=== PATIENT | male | born 1975 | race Two or more races ===

== ENCOUNTER 2019-12-05 20:39 | Inpatient (IN) ==
[2019-12-05 20:46] VITALS: BMI 31.4
--- NOTE | 2019-12-05 21:10 | DR.SOBA ---
HPI Time Seen Time Seen by Provider: 12/05/19 21:10 Primary Care Physician Primary Care Physician: BERNADETTE HPI Comment HPI Comment: PATIENT IS 44YR OLD MALE IN ER WITH INCREASING SOB AND FEVER TIMES 6 DAYS. HE DEVELOP COUGH, SOERE THROAT AND MYALFIA WITH FEVER AND CHILLS 6ADS AGO. EVALUATED IN ER 3 DAYS LATER AND COVID 19 TEST WAS DONE. IT IS POSITIVE. C HEST TIGHTNESS AND SOB BREATH THAT IS GETTING WORSE FOLLOWED PREVIOUS SYMPTOMS. EXTREMELY WEAK AND DRAINED OF ENERGY. GIVEN ZITHROMAS AND IS TAKING MEDICATION WITHOUT IMPROVEMENT. HE IS HAVING SEVERE 10-/10 THROBBING HEADACHE AND MUSCLE PAIN. HE TOOK IBUPROFEN FOR PAIN WITH SOME IMPROVEMENT. HAVE NOT PREVIOUSLY HAVESIMILAR PAIN. PAIN IS GENERALIZED. IMPROVE WITH REST AND WORSE WITH EXERTION. NO DYSURIA, OR DIARRHEA. PATIENT SPEAK MALAY, HERE WITH RELATIVE WHO IS INTERPRETING FOR HIM. Complaints Chief Complaint Doctors Comments: FEVER, SOB AND CHEST PAIN. Chief Complaint:: PT AMBULATORY IN ED WITH C/O TROUBLE BREATHING. PT WAS SEEN IN ED 2 DAYS AGO FOR SAME REASON. PT WAS TESTED FOR COVID 19 AT THAT TIME AND WAS CALLED TODAY AND TOLD HE WAS POSITIVE. PT STILL HAVING TROUBLE BREATHING AND UNABLE TO SLEEP X 2-3 DAYS. COVID-19 Coronavirus risk:travel/contact w/high risk person: No Has patient experienced Coronavirus symptoms: Yes Coronavirus symptoms experienced: Fever, Coughing and Shortness of Breath Reviewed Nurses Notes Reviewed: Yes Source History Provided: Family Member Mode of Arrival Mode of Arrival: Ambulatory Timing Onset of Chief Complaint: 11/30/19 Duration Duration: Days Context PE Risk Factors:: None History of:: None Currently on:: Neither Prehospital Care:: None Modifying Factors Worsens:: Exertion Improves:: Rest and Sitting Up Associated Signs and Symptoms Associated Signs and Symptoms: Fever, Cough and Chest Pain If Chest Pain Quality: Pleuritic (TIGHTNESS.) Location: Substernal If Cough Cough: Nonproductive PMH PMH Past Medical History: No Past Surgical History: No Surgical History: No History Family History History of Family Medical Conditions: No Social History Does patient currently use any type of tobacco product: No Have you used tobacco products in the last 12 months: No Type of Tobacco Use: None Does any household member use tobacco: No Alcohol Use: Occasionally Do you use any recreational Drugs:: No Lives With: Spouse Lives Where: Home Travel Risk Coronavirus risk:travel/contact w/high risk person: No Has patient experienced Coronavirus symptoms: Yes Coronavirus symptoms experienced: Fever, Coughing and Shortness of Breath Infectious screening In the last 2 months have you had wt loss of >10#?: NO Have you had fever, night sweats or hemotysis?: No Have you traveled outside the country in the last 6 months?: No Isolation: Droplet ROS Review of Systems Constitutional: See HPI, Chills, Fever, Malaise, Weakness and Fatigue Eyes: No Symptoms Reported and See HPI; negative Blurred Vision and Diplopia ENTM: See HPI, Nose Congestion and Throat Pain; negative Ear Pain and Nose Discharge Respiratoy: See HPI, Non-Productive Cough, Short of Breath and Wheezing; negative Hemoptysis Cardiovascular: See HPI, Chest Pain (TIGHTNESS.) and Palpitations; negative Edema Gastrointestinal/Abdominal: No Symptoms Reported; negative Abdominal Pain, Diarrhea, Nausea and Vomiting Genitourinary: No Symptoms Reported; negative Dysuria, Frequency and Hematuria Neurological: Headache and Weakness; negative Dizziness Musculoskeletal: See HPI and Muscle Pain Integumentary: See HPI and Dryness; negative Change in Color, Rash and Juandice Hematologic/Lymphatic: No Symptoms Reported and See HPI; negative Easy Bruising and Swollen Glands Endocrine: See HPI and Increased Thirst; negative Increased Urine Psychiatric: No Symptoms Reported and See HPI All Other Systems: Reviewed and Negative PE Vital Signs Vitals: Temperature 99.8 F Pulse Rate 88 Respiratory Rate 46 Blood Pressure [Right Arm] 97/60 Blood Pressure 117/64 O2 Sat by Pulse Oximetry 97 General Limitations: Language Barrier General Appearance: Alert and In Distress Head Head Exam: Normal Inspection and Atraumatic Eyes Eye exam: Normal Appearance and PERRL; negative Scleral Icterus and Conjunctival Injection ENT ENT Exam: Normal External Ear Exam; negative Normal Oropharynx and TM's Normal Bilaterally Neck Neck Exam: Normal Inspection and Trachea Midline; negative Tenderness and Lymphadenopathy Chest Chest Inspection: Normal Inspection and Symmetric Chest Wall Rise; negative Tenderness Respiratory Respiratory Exam: Normal Lung Sounds Bilat, Chest Wall Tenderness and Respiratory Distress; negative Accessory Muscle Use Respiratory Exam: Bilateral: Wheezing and Bilateral: Rhonchi and Lower: Wheezing and Lower: Rhonchi Cardiovascular Cardiovascular Exam: Normal Rhythm, Tachycardia and Normal Heart Sounds Abdominal Exam Abdominal Exam: Normal Inspection, Normal Bowel Sounds and Soft; negative Tenderness Extremities Extremities Exam: Normal Inspection and Normal Capillary Refill; negative Tenderness, Edema and Calf Tenderness Back Back Exam: Normal Inspection and Tenderness; negative (R) CVA Tenderness, (L) CVA Tenderness and Paraspinal Tenderness Neurologic Neurological Exam: Alert, Oriented X3 and CN II-XII Intact; negative Motor Sensory Deficit Psychiatric Psychiatric Exam: Normal Affect and Normal Mood Skin Skin Exam: Warm, Dry, Intact and Normal Color MDM Additional Information Obtained Additional Information Obtained From: Family Differential Diagnosis Differential Diagnosis: Bronchitis, CHF, Hyponatremia, Pneumonia, Pneumothorax, Respiratory Insufficiency, Sinusitis and URI COURSE Treatment Treatment: SEE ORDERS. NS 125CC/HR. ROCEPHIN 1GM IVPB IN ER. Consultation Consultation Comments: DISCUSSED PATIENT WITH DR. AYERS. HE WILL ADMIT PATIENT. Education/Counseling Education/Counseling: Patient and Family Educated On: Diagnosis ROR Labs Reviewed Laboratory Results Reviewed?: Yes Result Diagrams: 12/06/19 05:02 12/06/19 05:02 Laboratory: WBC 5.2 X10^3/uL (3.6-10.0) 12/05/19 21: RBC 5.14 X10^6/uL (4.7-6.0) 12/05/19 21: Hgb 14.8 g/dL (13.5-18.0) 12/05/19 21: Hct 42.7 % (42.0-54.0) 12/05/19 21: MCV 83.1 fL (80.0-100.0) 12/05/19 21: MCH 28.9 pg (27.0-34.0) 12/05/19 21: MCHC 34.8 g/dL (33.0-35.0) 12/05/19 21:30 RDW 14.0 % (11.6-16.5) 12/05/19 21: Plt Count 144 X10^3/uL (150.0-450.0) L 12/05/19 21: MPV 8.2 fL (7.4-11.0) 12/05/19 21:30 Neut % (Auto) 79.1 % (42.0-75.0) H 12/05/19 21: Lymph % (Auto) 13.1 % (21.0-51.0) L 12/05/19 21:30 [place] % (Auto) 7.4 % (0.0-13.0) 12/05/19 21:30 Eos % (Auto) 0.1 % (0.9-2.9) L 12/05/19 21:30 Baso % (Auto) 0.3 % (0.2-1.0) 12/05/19 21:30 Neut # (Auto) 4.1 x10^3/uL (2.2-4.8) 12/05/19 21:30 Lymph # (Auto) 0.7 X10^3/uL (1.3-2.9) L 12/05/19 21:30 [place] # (Auto) 0.4 x10^3/uL (0.3-0.8) 12/05/19 21:30 Eos # (Auto) 0.0 x10^3/uL (0.0-0.2) 12/05/19 21:30 Baso # (Auto) 0.0 X10^3/uL (0.0-0.1) 12/05/19 21:30 Absolute Nucleated RBC 0.2 /100WBC 12/05/19 21:30 Sample Site Rrad 12/05/19 21:50 ABG pH 7.400 (7.35-7.45) 12/05/19 21:50 ABG pCO2 38.0 mmHg (35.0-45.0) 12/05/19 21:50 ABG pO2 71.0 mmHg (80.0-100.0) L 12/05/19 21:50 ABG HCO3 23.5 mmol/L (22-26) 12/05/19 21:50 ABG O2 Saturation 94.0 % (90-100) 12/05/19 21:50 ABG Base Excess -1.1 mmol/L (-2.0-2.0) 12/05/19 21:50 Ernesto Test Pos 12/05/19 21:50 A-a Gradient 31.0 mmHg 12/05/19 21:50 FiO2 21.0 12/05/19 21:50 Blood Gas Comments Chilo abg well-mtf 12/05/19 21:50 Sodium 136 mmol/L (136-145) 12/05/19 21:30 Corrected Sodium 138 mmol/L (136-145) 12/05/19 21:30 Potassium 4.2 mmol/L (3.5-5.1) 12/05/19 21:30 Chloride 103 mmol/L (98-107) 12/05/19 21:30 Carbon Dioxide 25.6 mmol/L (21-32) 12/05/19 21:30 BUN 7 mg/dL (7-18) 12/05/19 21:30 Creatinine 1.01 mg/dL (0.70-1.30) 12/05/19 21:30 Est GFR (MDRD) Af Amer > 60 (>60) 12/05/19 21:30 Est GFR (MDRD) Non-Af > 60 (>60) 12/05/19 21:30 Glucose 174 mg/dL (65-99) H 12/05/19 21:30 Lactic Acid 1.3 mmol/L (0.4-2.0) 12/05/19 21:30 Calcium 7.8 mg/dL (8.5-10.1) L 12/05/19: Corrected Calcium 8.6 mg/dL (8.5-10.1) 12/05/19 21:30 Total Bilirubin 0.20 mg/dL (0.2-1.0) 12/05/19 21:30 AST 93 Units/L (15-37) H 12/05/19 21:30 ALT 108 Units/L (12-78) H 12/05/19 21:30 Alkaline Phosphatase 88 Units/L (46-116) 12/05/19 21:30 Total Protein 7.6 g/dL (6.4-8.2) 12/05/19: Albumin 3.0 g/dL (3.4-5.0) L 12/05/19 21:30 Globulin 4.6 g/dL (2.5-4.5) H 12/05/19 21:30 Albumin/Globulin Ratio 0.7 Ratio (1.1-2.1) L 12/05/19 21:30 XRAY XRAY Interpreted by: Radiologist (REPORT NOTED AND DISCUSSED WITH PATIENT.) and Self (BRONCHOPNEUMONIA) Opioid Opioid Risk Tool Age (Abdullahi box if 16-45): Yes History of Preadolescent Sexual Abuse: No Total: 1 Total Score Risk Category: Low Risk Copyright: Joseph WALTERS predicting aberrant behaviors Diagnosis Discharge Problem: Hypoxia, Generalized weakness Pneumonia Qualifiers: Pneumonia type: due to unspecified organism Laterality: bilateral Lung location: lower lobe of lung Qualified Code(s): J18.9 - Pneumonia, unspecified organism Fever Qualifiers: Fever type: unspecified Qualified Code(s): R50.9 - Fever, unspecified Instructions Forms: Excuse From Work Precautions for COVID19 Patient Portal Social Distancing
[2019-12-05] MEDS ORDERED: ROCEPHIN VIAL 1 GRAM IV ONE (21:15)
[2019-12-05] MEDS ORDERED: NS 1000 ML 1,000 ML ONE (21:19)
[2019-12-05] MEDS: NS 1000 ML 1,000 ML IV SCH (21:30)
[2019-12-05] MEDS ORDERED: NS 100 ML IV 100 ML IV ONE ×2 (21:37→21:45)
[2019-12-05] MEDS ORDERED: ROCEPHIN VIAL 1 GRAM ONE (21:38)
[2019-12-05 21:52] LABS: BASOPHILS % (AUTO) 0.3 % (0.2-1.0); EOSINOPHILS % (AUTO) 0.1 % (0.9-2.9); HEMATOCRIT 42.7 % (42.0-54.0); HEMOGLOBIN 14.8 g/dL (13.5-18.0); LYMPHOCYTES # (AUTO) 0.7 X10^3/uL (1.3-2.9); LYMPHOCYTES % (AUTO) 13.1 % (21.0-51.0); MEAN CORPUSCULAR HEMOGLOBIN 28.9 pg (27.0-34.0); MEAN CORPUSCULAR HGB CONC 34.8 g/dL (33.0-35.0); MEAN CORPUSCULAR VOLUME 83.1 fL (80.0-100.0); MEAN PLATELET VOLUME 8.2 fL (7.4-11.0); MONOCYTES # (AUTO) 0.4 x10^3/uL (0.3-0.8); MONOCYTES % (AUTO) 7.4 % (0.0-13.0); NEUTROPHILS # (AUTO) 4.1 x10^3/uL (2.2-4.8); NEUTROPHILS % (AUTO) 79.1 % (42.0-75.0); PLATELET COUNT 144 X10^3/uL (150.0-450.0); RED BLOOD COUNT 5.14 X10^6/uL (4.7-6.0); WHITE BLOOD COUNT 5.2 X10^3/uL (3.6-10.0)
[2019-12-05 21:58] LABS: ABG ALLEN TEST POS; ABG BASE EXCESS -1.1 mmol/L (-2.0-2.0); ABG HCO3 23.5 mmol/L (22-26)
[2019-12-05 22:03] LABS: ALANINE AMINOTRANSFERASE 108 Units/L (12-78); ALKALINE PHOSPHATASE 88 Units/L (46-116); ASPARTATE AMINO TRANSFERASE 93 Units/L (15-37); BLOOD UREA NITROGEN 7 mg/dL (7-18); CALCIUM 7.8 mg/dL (8.5-10.1); CARBON DIOXIDE 25.6 mmol/L (21-32); CHLORIDE 103 mmol/L (98-107); COR CA(FOR HYPOALB) 8.6 mg/dL (8.5-10.1); COR NA(FOR HYPERGLY) 138 mmol/L (136-145); CREATININE 1.01 mg/dL (0.70-1.30); SODIUM 136 mmol/L (136-145); TOTAL PROTEIN 7.6 g/dL (6.4-8.2); eGFR NON BLACK RACES > 60 (>60)
[2019-12-05 22:08] LABS: LACTIC ACID 1.3 mmol/L (0.4-2.0)
[2019-12-05 23:29] LABS: BILIRUBIN,URINE NEGATIVE (NEGATIVE); BLOOD/HEMOGLOBIN,URINE 1+ (NEGATIVE); GLUCOSE, URINE 2+ (NEGATIVE); KETONES,URINE NEGATIVE (NEGATIVE); LEUKOCYTE ESTERASE ,URINE NEGATIVE (NEGATIVE); NITRITES,URINE NEGATIVE (NEGATIVE); PH,URINE 6.5 (5.0 - 8.0); PROTEIN,URINE 2+ (NEGATIVE); UROBILINOGEN,URINE NORMAL (NORMAL)
[2019-12-05 23:35] LABS: APPEARANCE,URINE CLEAR (CLEAR); BACTERIA,URINE NEGATIVE /HPF (NEGATIVE); COLOR,URINE YELLOW (YELLOW); MUCUS,URINE FEW /HPF (NEGATIVE); RBC,URINE 0-2 /HPF (0-3); SQUAMOUS EPITHELIAL CELL,UR NEGATIVE /HPF (NEGATIVE)
[2019-12-06] MEDS: TUSSIONEX PENNKINETIC SUSP PO PRN ×2 (02:34→14:05)
[2019-12-06 06:04] LABS: BASOPHILS % (AUTO) 0.2 % (0.2-1.0); EOSINOPHILS % (AUTO) 0.1 % (0.9-2.9); HEMOGLOBIN 13.9 g/dL (13.5-18.0); LYMPHOCYTES # (AUTO) 0.9 X10^3/uL (1.3-2.9); MEAN CORPUSCULAR HEMOGLOBIN 29.2 pg (27.0-34.0); MEAN CORPUSCULAR HGB CONC 34.8 g/dL (33.0-35.0); MEAN CORPUSCULAR VOLUME 83.7 fL (80.0-100.0); MEAN PLATELET VOLUME 7.9 fL (7.4-11.0); MONOCYTES # (AUTO) 0.3 x10^3/uL (0.3-0.8); MONOCYTES % (AUTO) 4.8 % (0.0-13.0); NEUTROPHILS # (AUTO) 5.1 x10^3/uL (2.2-4.8); NEUTROPHILS % (AUTO) 80.9 % (42.0-75.0); PLATELET COUNT 146 X10^3/uL (150.0-450.0); RED BLOOD COUNT 4.78 X10^6/uL (4.7-6.0); RED CELL DISTRIBUTION WIDTH 13.8 % (11.6-16.5); WHITE BLOOD COUNT 6.3 X10^3/uL (3.6-10.0)
[2019-12-06 06:25] LABS: ALANINE AMINOTRANSFERASE 90 Units/L (12-78); ALBUMIN 2.7 g/dL (3.4-5.0); ALKALINE PHOSPHATASE 81 Units/L (46-116); ASPARTATE AMINO TRANSFERASE 69 Units/L (15-37); BLOOD UREA NITROGEN 5 mg/dL (7-18); CALCIUM 7.7 mg/dL (8.5-10.1); CARBON DIOXIDE 27.8 mmol/L (21-32); CHLORIDE 106 mmol/L (98-107); COR CA(FOR HYPOALB) 8.7 mg/dL (8.5-10.1); COR NA(FOR HYPERGLY) 138 mmol/L (136-145); CREATININE 1.01 mg/dL (0.70-1.30); SODIUM 137 mmol/L (136-145); TOTAL PROTEIN 6.8 g/dL (6.4-8.2); eGFR NON BLACK RACES > 60 (>60)
[2019-12-06] MEDS ORDERED: ROBITUSSIN DM ONE (06:35)
[2019-12-06] MEDS: ROBITUSSIN DM PO SCH ×5 (06:50→20:57)
[2019-12-06] MEDS: NS 1000 ML 1,000 ML IV SCH ×3 (07:16→13:00)
[2019-12-06] MEDS ORDERED: TYLENOL 325 MG TAB PO PRN (08:18)
[2019-12-06] MEDS ORDERED: TYLENOL 325 MG TAB PO ONE (08:52)
--- NOTE | 2019-12-06 09:59 | RAD ---
HISTORYSOBSTUDYPortable AP [id number] stable cardiomegaly. Interval increase in bilateral areas of confluent airspace disease in both upper and lower lungs. No discrete mass, adenopathy or pleural fluid identified.IMPRESSIONInterval progression of bilateral pulmonary infiltrates consistent with multifocal pneumonia.Electronically signed by: MALAIKA CONTE (December 06, 2019 09:57:40)
[2019-12-06] MEDS: VENTOLIN or PROAIR HFA IN PRN ×3 (10:30→21:17)
--- NOTE | 2019-12-06 10:59 | DR.H&P ---
H&P History & Physical for Day of: H&P Date: 12/06/19 Chief Complaint Chief Complaint: Shortness of breath Allergies Allergies Allergy/AdvReac Type Severity Reaction Status Date / Time No Known Drug Allergies Allergy Verified 12/02/19 21:30 History of Present Illness History of Present Illness: Pt is a 44 y/o m w/ no pmhx admitted for COVID-19 pneumonia and acute respiratory failure after having increasing shortness of breath and fever for the past 6 days. Reported COVID positive test on 12/05/19. Initial labs/imaging: CXR:Interval progression of bilateral pulmonary infiltrates consistent with multifocal pneumonia. He had CT chest few days prior to admission in ED that showed ground glass opacities. Wbc 6.3, Hgb 13.9, Plt 146, Na 137, K 4.4, HCO3 27.8, Cr 1.01, Gluc 159, AST 69, ALT 90, AlkP 81. ABG: pH 7.4/38/71/23/94% on RA. Pt is currently on 3L nc, will start on High flow, IV Solumedrol 80mg q8h, Albuterol inh, Lovenox ppx, Will get CRP and give 2 doses of Actemra. Reduce IVF NS to 75ml/h. Continue to closely monitor patient follow up labs/imaging. Past Medical History Past Medical History: denies Alzheimers, Anemia, Angina, Anxiety, Arthritis, Asthma, Cirrhosis, CHF, COPD, Coronary Artery Disease, CVA, Dementia, Depression, Diabetes, Dialysis, Dyslipidemia, Migraines, GERD, Gout, Headaches, Hypertension, Hyperthyroidism, Hypothyroidism, Kidney Stones, Liver Disease, [place], PUD, Renal Disease, Schizophrenia, Seizures, Sleep Apnea, SVT and Ventricular Tachycardia Past Surgical History Surgical History: No History Social History Does patient currently use any type of tobacco product: No Have you used tobacco products in the last 12 months: No Type of Tobacco Use: None Does any household member use tobacco: No Alcohol Use: Rarely Drug Use: None Medications Home Medications: No Known Drug Allergies Allergy (Verified 12/02/19 21:30) CONTINUE taking the following medications azithromycin [Zithromax] 250 mg PO DAILY 12/05/19 [History] Labs Result Diagrams: 12/06/19 05:02 12/06/19 05:02 Labs: Laboratory WBC 6.3 X10^3/uL (3.6-10.0) 12/06/19 05:02 RBC 4.78 X10^6/uL (4.7-6.0) 12/06/19 05:02 Hgb 13.9 g/dL (13.5-18.0) 12/06/19 05:02 Hct 40.0 % (42.0-54.0) L 12/06/19 05:02 MCV 83.7 fL (80.0-100.0) 12/06/19 05:02 MCH 29.2 pg (27.0-34.0) 12/06/19 05:02 MCHC 34.8 g/dL (33.0-35.0) 12/06/19 05:02 RDW 13.8 % (11.6-16.5) 12/06/19 05:02 Plt Count 146 X10^3/uL (150.0-450.0) L 12/06/19 05:02 MPV 7.9 fL (7.4-11.0) 12/06/19 05:02 Neut % (Auto) 80.9 % (42.0-75.0) H 12/06/19 05:02 Lymph % (Auto) 14.0 % (21.0-51.0) L 12/06/19 05:02 [place] % (Auto) 4.8 % (0.0-13.0) 12/06/19 05:02 Eos % (Auto) 0.1 % (0.9-2.9) L 12/06/19 05:02 Baso % (Auto) 0.2 % (0.2-1.0) 12/06/19 05:02 Neut # (Auto) 5.1 x10^3/uL (2.2-4.8) H 12/06/19 05:02 Lymph # (Auto) 0.9 X10^3/uL (1.3-2.9) L 12/06/19 05:02 [place] # (Auto) 0.3 x10^3/uL (0.3-0.8) 12/06/19 05:02 Eos # (Auto) 0.0 x10^3/uL (0.0-0.2) 12/06/19 05:02 Baso # (Auto) 0.0 X10^3/uL (0.0-0.1) 12/06/19 05:02 Absolute Nucleated RBC 0.1 /100WBC 12/06/19 05:02 Sample Site Rrad 12/05/19 21:50 ABG pH 7.400 (7.35-7.45) 12/05/19 21:50 ABG pCO2 38.0 mmHg (35.0-45.0) 12/05/19 21:50 ABG pO2 71.0 mmHg (80.0-100.0) L 12/05/19 21:50 ABG HCO3 23.5 mmol/L (22-26) 12/05/19 21:50 ABG O2 Saturation 94.0 % (90-100) 12/05/19 21:50 ABG Base Excess -1.1 mmol/L (-2.0-2.0) 12/05/19 21:50 Ernesto Test Pos 12/05/19 21:50 A-a Gradient 31.0 mmHg 12/05/19 21:50 FiO2 21.0 12/05/19 21:50 Blood Gas Comments Chilo abg well-mtf 12/05/19 21:50 Sodium 137 mmol/L (136-145) 12/06/19 05:02 Corrected Sodium 138 mmol/L (136-145) 12/06/19 05:02 Potassium 4.4 mmol/L (3.5-5.1) 12/06/19 05:02 Chloride 106 mmol/L (98-107) 12/06/19 05:02 Carbon Dioxide 27.8 mmol/L (21-32) 12/06/19 05:02 BUN 5 mg/dL (7-18) L 12/06/19 05:02 Creatinine 1.01 mg/dL (0.70-1.30) 12/06/19 05:02 Est GFR (MDRD) Af Amer > 60 (>60) 12/06/19 05:02 Est GFR (MDRD) Non-Af > 60 (>60) 12/06/19 05:02 Glucose 159 mg/dL (65-99) H 12/06/19 05:02 Lactic Acid 1.3 mmol/L (0.4-2.0) 12/05/19 21:30 Calcium 7.7 mg/dL (8.5-10.1) L 12/06/19 05:02 Corrected Calcium 8.7 mg/dL (8.5-10.1) 12/06/19 05:02 Total Bilirubin 0.30 mg/dL (0.2-1.0) 12/06/19 05:02 AST 69 Units/L (15-37) H 12/06/19 05:02 ALT 90 Units/L (12-78) H 12/06/19 05:02 Alkaline Phosphatase 81 Units/L (46-116) 12/06/19 05:02 Total Protein 6.8 g/dL (6.4-8.2) 12/06/19 05:02 Albumin 2.7 g/dL (3.4-5.0) L 12/06/19 05:02 Globulin 4.1 g/dL (2.5-4.5) 12/06/19 05:02 Albumin/Globulin Ratio 0.7 Ratio (1.1-2.1) L 12/06/19 05:02 Specimen Type Clean catch urine 12/05/19 23:20 Urine Color Yellow (YELLOW) 12/05/19 23:20 Urine Appearance Clear (CLEAR) 12/05/19 23:20 Urine pH 6.5 (5.0 - 8.0) 12/05/19 23:20 Ur Specific [place] 1.010 (1.000-1.030) 12/05/19 23:20 Urine Protein 2+ (NEGATIVE) 12/05/19 23:20 Urine Glucose (UA) 2+ (NEGATIVE) 12/05/19 23:20 Urine Ketones Negative (NEGATIVE) 12/05/19 23:20 Urine Occult Blood 1+ (NEGATIVE) 12/05/19 23:20 Urine Nitrite Negative (NEGATIVE) 12/05/19 23:20 Urine Bilirubin Negative (NEGATIVE) 12/05/19 23:20 Urine Urobilinogen Normal (NORMAL) 12/05/19 23:20 Ur Leukocyte Esterase Negative (NEGATIVE) 12/05/19 23:20 Urine RBC 0-2 /HPF (0-3) 12/05/19 23:20 Urine WBC None seen /HPF (0-5) 12/05/19 23:20 Ur Squamous Epith Cells Negative /HPF (NEGATIVE) 12/05/19 23:20 Urine Bacteria Negative /HPF (NEGATIVE) 12/05/19 23:20 Urine Mucus Few /HPF (NEGATIVE) 12/05/19 23:20 Ur Culture Indicated? No/not indicated 12/05/19 23:20 Review of Systems Constitutional: Fever, Chills and Sweats Eyes: No Symptoms Reported ENT: Throat Pain Respiratory: Cough, Shortness of Breath, Pleuritic Pain and Wheezing Cardiovascular: No Symptoms Reported Gastrointestinal: No Symptoms Reported Genitourinary: No Symptoms Reported Musculoskeletal: No Symptoms Reported Skin: No Symptoms Reported Neurological: No Symptoms Reported Physical Exam Vital Signs: Temperature 100.5 F Pulse Rate 107 Respiratory Rate 40 Blood Pressure [Right Arm] 97/60 Blood Pressure 139/77 O2 Sat by Pulse Oximetry 93 Oriented: Normal Eyes: Normal Ear: Normal Nose: Normal Respiratory: Diminished Throughout, Rhonchi Throughout and Wheezes Throughout Cardiovascular: Tachycardia : Normal Auscultation: Bowel Sounds: Normal Palpation: Normal Tenderness: Normal Skin: Normal Musculoskeletal: Normal Mood Description: Anxious Speech Pattern: Clear Assessment/Plan (1) Pneumonia due to COVID-19 virus: Status: Acute Plan: Bronchodilators, IS, Actemra x 2 doses, Solumedrol 80mg q8h. Supplemental O2. (2) Acute respiratory failure: Status: Acute Review H&P Reviewed: Yes Patient was examined?: Yes
[2019-12-06] MEDS ORDERED: ATIVAN TAB 0.5 MG PO PRN (11:03)
[2019-12-06] MEDS ORDERED: ATIVAN TAB 0.5 MG PO ONE (11:03)
[2019-12-06] MEDS ORDERED: ACTEMRA SQ NR ×2 (12:00→20:00)
[2019-12-06] MEDS ORDERED: LOVENOX INJ 40 MG SYR SC ONE (12:08)
[2019-12-06] MEDS ORDERED: SOLU-Medrol 40 MG VIAL ONE (12:08)
[2019-12-06] MEDS ORDERED: ATIVAN TAB 0.5 MG ONE (12:08)
[2019-12-06] MEDS: SOLU-Medrol 125 MG VIAL IVP SCH ×3 (12:11→21:03)
[2019-12-06] MEDS: LOVENOX INJ 40 MG SYR SC SCH (12:49)
[2019-12-07] MEDS: TUSSIONEX PENNKINETIC SUSP PO PRN ×2 (02:51→16:30)
[2019-12-07] MEDS: NS 1000 ML 1,000 ML IV SCH ×5 (04:10→22:12)
[2019-12-07] MEDS: SOLU-Medrol 125 MG VIAL IVP SCH ×3 (05:33→21:33)
[2019-12-07 06:11] LABS: BASOPHILS % (AUTO) 0.1 % (0.2-1.0); HEMATOCRIT 38.2 % (42.0-54.0); HEMOGLOBIN 13.7 g/dL (13.5-18.0); LYMPHOCYTES # (AUTO) 0.5 X10^3/uL (1.3-2.9); LYMPHOCYTES % (AUTO) 10.6 % (21.0-51.0); MEAN CORPUSCULAR HEMOGLOBIN 29.5 pg (27.0-34.0); MEAN CORPUSCULAR HGB CONC 35.9 g/dL (33.0-35.0); MEAN CORPUSCULAR VOLUME 82.2 fL (80.0-100.0); MEAN PLATELET VOLUME 7.7 fL (7.4-11.0); MONOCYTES # (AUTO) 0.2 x10^3/uL (0.3-0.8); MONOCYTES % (AUTO) 4.8 % (0.0-13.0); NEUTROPHILS # (AUTO) 4.1 x10^3/uL (2.2-4.8); NEUTROPHILS % (AUTO) 84.5 % (42.0-75.0); PLATELET COUNT 196 X10^3/uL (150.0-450.0); RED BLOOD COUNT 4.65 X10^6/uL (4.7-6.0); RED CELL DISTRIBUTION WIDTH 13.5 % (11.6-16.5); WHITE BLOOD COUNT 4.9 X10^3/uL (3.6-10.0)
[2019-12-07 06:16] LABS: ABG ALLEN TEST POS; ABG BASE EXCESS 0.5 mmol/L (-2.0-2.0); ABG HCO3 24.6 mmol/L (22-26)
[2019-12-07 06:36] LABS: ALANINE AMINOTRANSFERASE 82 Units/L (12-78); ALBUMIN 2.7 g/dL (3.4-5.0); ALKALINE PHOSPHATASE 87 Units/L (46-116); ASPARTATE AMINO TRANSFERASE 51 Units/L (15-37); BLOOD UREA NITROGEN 10 mg/dL (7-18); CALCIUM 8.5 mg/dL (8.5-10.1); CARBON DIOXIDE 25.1 mmol/L (21-32); CHLORIDE 105 mmol/L (98-107); COR CA(FOR HYPOALB) 9.5 mg/dL (8.5-10.1); COR NA(FOR HYPERGLY) 142 mmol/L (136-145); CREATININE 0.94 mg/dL (0.70-1.30); SODIUM 138 mmol/L (136-145); TOTAL PROTEIN 7.3 g/dL (6.4-8.2); eGFR NON BLACK RACES > 60 (>60)
--- NOTE | 2019-12-07 07:21 | RAD ---
HISTORYPNEUMONIASTUDYCHEST, 1 VIEWCOMPARISONMay 2019TECHNIQUEPortable chest x-rayFINDINGSHypoventilatory exam with patchy interstitial and alveolar infiltrates consistent with multifocal pneumonia, with minimal interval clearing. Pleural spaces are clear and the heart size is normal.IMPRESSIONMarginally improved, but unresolved, pattern of multifocal bilateral pulmonary infiltrates consistent with atypical pneumonia pattern (probable viral or atypical organism).Electronically signed by: SAMARA ZACARIAS (December 07, 2019 07:20:21)
[2019-12-07] MEDS: ROBITUSSIN DM PO SCH ×4 (08:19→21:32)
[2019-12-07] MEDS: LOVENOX INJ 40 MG SYR SC SCH (08:20)
--- NOTE | 2019-12-07 11:04 | PCM.PROG ---
Progress Note Progress Note for Day of Date of Exam: 12/07/19 Subjective Subjective: Pt is a 44 y/o m w/ no pmhx admitted for COVID-19 pneumonia and acute respiratory failure after having increasing shortness of breath and fever for almost a week. Reported COVID positive test on 12/05/19. He is sitting up in bed this morning eating breakfast on High Flow oxygen. Labs/imaging: CXR:Marginally improved, but unresolved, pattern of multifocal bilateral pulmonary infiltrates consistent with atypical pneumonia pattern (probable viral or atypical organism). Wbc 4.9, Hgb 13.7, Plt 196, Na 138, K 3.9, Cr 0.94, Gluc 251, ABG: pH 7.43/37/101/24/98% on HiFlow FiO2 80%. His treatment in includes IV Solumedrol 80mg q8h, Albuterol inh, Lovenox ppx, Received 2 doses of Actemra on 12/06/19. IVF NS to 75ml/h. Continue to monitor patient and follow up labs/imaging in the morning. Past Medical Family Social History Past Med/Fam/Surg Hx: No changes since H&P Allergies: Allergies No Known Drug Allergies Allergy (Verified 12/02/19 21:30) Review of Systems ROS: No change since H&P Vital Signs and I&O's Vital Signs: Temperature 99.3 F Pulse Rate 96 Respiratory Rate 27 Blood Pressure [Right Arm] 97/60 Blood Pressure 128/75 O2 Sat by Pulse Oximetry 95 Intake and Output: Intake & Output 12/04/19 12/05/19 12/06/19 12/07/19 23:59 23:59 23:59 23:59 Intake Total 3349 / 3349 758 / 758 Output Total 2725 / 2725 975 / 975 Balance 624 / 624 -217 / -217 Physical Exam Oriented: Normal Eyes: Normal Ear: Normal Nose: Normal Cardiovascular: Normal : Normal Auscultation: Bowel Sounds: Normal Tenderness: Normal Skin: Normal Musculoskeletal: Normal Mood Description: Calm Speech Pattern: Clear and Appropriate Laboratory and Diagnostics Result Diagrams: 12/07/19 04:50 12/07/19 04:50 Labs: 12/05/19 21:37 Blood Blood Culture - Preliminary 12/05/19 21:30 Blood Blood Culture - Preliminary 05/23/20 21:18 Sputum - Expectorated Sputum - Final Laboratory WBC 4.9 X10^3/uL (3.6-10.0) 12/07/19 04:50 RBC 4.65 X10^6/uL (4.7-6.0) L 12/07/19 04:50 Hgb 13.7 g/dL (13.5-18.0) 12/07/19 04:50 Hct 38.2 % (42.0-54.0) L 12/07/19 04:50 MCV 82.2 fL (80.0-100.0) 12/07/19 04:50 MCH 29.5 pg (27.0-34.0) 12/07/19 04:50 MCHC 35.9 g/dL (33.0-35.0) H 12/07/19 04:50 RDW 13.5 % (11.6-16.5) 12/07/19 04:50 Plt Count 196 X10^3/uL (150.0-450.0) 12/07/19 04:50 MPV 7.7 fL (7.4-11.0) 12/07/19 04:50 Neut % (Auto) 84.5 % (42.0-75.0) H 12/07/19 04:50 Lymph % (Auto) 10.6 % (21.0-51.0) L 12/07/19 04:50 [place] % (Auto) 4.8 % (0.0-13.0) 12/07/19 04:50 Eos % (Auto) 0.0 % (0.9-2.9) L 12/07/19 04:50 Baso % (Auto) 0.1 % (0.2-1.0) L 12/07/19 04:50 Neut # (Auto) 4.1 x10^3/uL (2.2-4.8) 12/07/19 04:50 Lymph # (Auto) 0.5 X10^3/uL (1.3-2.9) L 12/07/19 04:50 [place] # (Auto) 0.2 x10^3/uL (0.3-0.8) L 12/07/19 04:50 Eos # (Auto) 0.0 x10^3/uL (0.0-0.2) 12/07/19 04:50 Baso # (Auto) 0.0 X10^3/uL (0.0-0.1) 12/07/19 04:50 Absolute Nucleated RBC 0.1 /100WBC 12/07/19 04:50 Sample Site Lrad 12/07/19 06:11 ABG pH 7.430 (7.35-7.45) 12/07/19 06:11 ABG pCO2 37.0 mmHg (35.0-45.0) 12/07/19 06:11 ABG pO2 101.0 mmHg (80.0-100.0) H 12/07/19 06:11 ABG HCO3 24.6 mmol/L (22-26) 12/07/19 06:11 ABG O2 Saturation 98.0 % (90-100) 12/07/19 06:11 ABG Base Excess 0.5 mmol/L (-2.0-2.0) 12/07/19 06:11 Ernesto Test Pos 12/07/19 06:11 A-a Gradient 423.0 mmHg 12/07/19 06:11 FiO2 80.0 12/07/19 06:11 Blood Gas Comments Chilo abg well-mtf 12/07/19 06:11 Sodium 138 mmol/L (136-145) 12/07/19 04:50 Corrected Sodium 142 mmol/L (136-145) 12/07/19 04:50 Potassium 3.9 mmol/L (3.5-5.1) 12/07/19 04:50 Chloride 105 mmol/L (98-107) 12/07/19 04:50 Carbon Dioxide 25.1 mmol/L (21-32) 12/07/19 04:50 BUN 10 mg/dL (7-18) 12/07/19 04:50 Creatinine 0.94 mg/dL (0.70-1.30) 12/07/19 04:50 Est GFR (MDRD) Af Amer > 60 (>60) 12/07/19 04:50 Est GFR (MDRD) Non-Af > 60 (>60) 12/07/19 04:50 Glucose 251 mg/dL (65-99) H 12/07/19 04:50 Lactic Acid 1.3 mmol/L (0.4-2.0) 12/05/19 21:30 Calcium 8.5 mg/dL (8.5-10.1) 12/07/19 04:50 Corrected Calcium 9.5 mg/dL (8.5-10.1) 12/07/19 04:50 Total Bilirubin 0.30 mg/dL (0.2-1.0) 12/07/19 04:50 AST 51 Units/L (15-37) H 12/07/19 04:50 ALT 82 Units/L (12-78) H 12/07/19 04:50 Alkaline Phosphatase 87 Units/L (46-116) 12/07/19 04:50 C-Reactive Protein 86.40 mg/L (0-3.0) H 12/06/19 05:02 Total Protein 7.3 g/dL (6.4-8.2) 12/07/19 04:50 Albumin 2.7 g/dL (3.4-5.0) L 12/07/19 04:50 Globulin 4.6 g/dL (2.5-4.5) H 12/07/19 04:50 Albumin/Globulin Ratio 0.6 Ratio (1.1-2.1) L 12/07/19 04:50 Specimen Type Clean catch urine 12/05/19 23:20 Urine Color Yellow (YELLOW) 12/05/19 23:20 Urine Appearance Clear (CLEAR) 12/05/19 23:20 Urine pH 6.5 (5.0 - 8.0) 12/05/19 23:20 Ur Specific [place] 1.010 (1.000-1.030) 12/05/19 23:20 Urine Protein 2+ (NEGATIVE) 12/05/19 23:20 Urine Glucose (UA) 2+ (NEGATIVE) 12/05/19 23:20 Urine Ketones Negative (NEGATIVE) 12/05/19 23:20 Urine Occult Blood 1+ (NEGATIVE) 12/05/19 23:20 Urine Nitrite Negative (NEGATIVE) 12/05/19 23:20 Urine Bilirubin Negative (NEGATIVE) 12/05/19 23:20 Urine Urobilinogen Normal (NORMAL) 12/05/19 23:20 Ur Leukocyte Esterase Negative (NEGATIVE) 12/05/19 23:20 Urine RBC 0-2 /HPF (0-3) 12/05/19 23:20 Urine WBC None seen /HPF (0-5) 12/05/19 23:20 Ur Squamous Epith Cells Negative /HPF (NEGATIVE) 12/05/19 23:20 Urine Bacteria Negative /HPF (NEGATIVE) 12/05/19 23:20 Urine Mucus Few /HPF (NEGATIVE) 12/05/19 23:20 Ur Culture Indicated? No/not indicated 12/05/19 23:20 Plan (1) Pneumonia due to COVID-19 virus: Status: Acute Plan: Bronchodilators, IS, Actemra x 2 doses, Solumedrol 80mg q8h. Supplemental O2. (2) Acute respiratory failure: Status: Acute
[2019-12-07] MEDS ORDERED: HumuLIN R ONE (11:46)
[2019-12-07] MEDS: HumuLIN R SUBCUT PRN ×3 (11:58→21:33)
[2019-12-07] MEDS: SNACK - Diabetic Appropriate PO SCH (19:45)
[2019-12-08 04:30] LABS: ABG BASE EXCESS 1.2 mmol/L (-2.0-2.0)
[2019-12-08 04:31] LABS: ABG ALLEN TEST POS
[2019-12-08 05:19] LABS: BASOPHILS % (AUTO) 0 % (0.2-1.0); HEMATOCRIT 40.1 % (42.0-54.0); HEMOGLOBIN 13.8 g/dL (13.5-18.0); LYMPHOCYTES # (AUTO) 0.9 X10^3/uL (1.3-2.9); LYMPHOCYTES % (AUTO) 9.8 % (21.0-51.0); MEAN CORPUSCULAR HEMOGLOBIN 28.9 pg (27.0-34.0); MEAN CORPUSCULAR HGB CONC 34.4 g/dL (33.0-35.0); MEAN CORPUSCULAR VOLUME 83.9 fL (80.0-100.0); MEAN PLATELET VOLUME 7.7 fL (7.4-11.0); MONOCYTES # (AUTO) 0.6 x10^3/uL (0.3-0.8); MONOCYTES % (AUTO) 6.3 % (0.0-13.0); NEUTROPHILS # (AUTO) 7.4 x10^3/uL (2.2-4.8); NEUTROPHILS % (AUTO) 83.9 % (42.0-75.0); PLATELET COUNT 258 X10^3/uL (150.0-450.0); RED BLOOD COUNT 4.79 X10^6/uL (4.7-6.0); RED CELL DISTRIBUTION WIDTH 13.6 % (11.6-16.5); WHITE BLOOD COUNT 8.8 X10^3/uL (3.6-10.0)
[2019-12-08 05:26] LABS: ALANINE AMINOTRANSFERASE 68 Units/L (12-78); ALBUMIN 2.5 g/dL (3.4-5.0); ALKALINE PHOSPHATASE 78 Units/L (46-116); ASPARTATE AMINO TRANSFERASE 42 Units/L (15-37); BLOOD UREA NITROGEN 15 mg/dL (7-18); CALCIUM 8.3 mg/dL (8.5-10.1); CARBON DIOXIDE 25.5 mmol/L (21-32); CHLORIDE 104 mmol/L (98-107); COR CA(FOR HYPOALB) 9.5 mg/dL (8.5-10.1); COR NA(FOR HYPERGLY) 145 mmol/L (136-145); SODIUM 141 mmol/L (136-145); TOTAL PROTEIN 6.9 g/dL (6.4-8.2); eGFR NON BLACK RACES > 60 (>60)
[2019-12-08] MEDS: NS 1000 ML 1,000 ML IV SCH ×3 (06:11→21:37)
[2019-12-08] MEDS: SOLU-Medrol 125 MG VIAL IVP SCH ×3 (06:12→21:35)
[2019-12-08] MEDS: HumuLIN R SUBCUT PRN ×4 (06:13→21:35)
--- NOTE | 2019-12-08 07:42 | RAD ---
HISTORYFollow-up pneumoniaSTUDYCHEST, 1 [id number]/24/2020FINDINGSThe heart is enlarged. No definite congestive heart failure is identi fied. Bilateral alveolar infiltrates are again identified not significantly changed in degree or dist ribution from the prior examination and most likely representing multifocal pneumonia. No pleural eff usions are identified. Bony thorax is unremarkable.IMPRESSIONNo significant change from the prior exa minationElectronically signed by: VI ASHTON (December 08, 2019 07:41:28)
[2019-12-08] MEDS ORDERED: KLOR-CON PO PRN (08:35)
[2019-12-08] MEDS ORDERED: MICRO K EXTEN CAP 10 MEQ PO PRN (08:35)
[2019-12-08] MEDS ORDERED: POTASSIUM CHL 40 MEQ/NS 0.45% 500 ML IV PRN (08:35)
[2019-12-08] MEDS ORDERED: POTASSIUM CHLORIDE LIQ 20 MEQ UDC PO PRN (08:35)
[2019-12-08] MEDS ORDERED: K-RIDER 10 MEQ/NS 100 ML 10 MEQ/100 ML BAG IV PRN (08:35)
[2019-12-08] MEDS ORDERED: POTASSIUM CHL 60 MEQ/NS 0.45% 500 ML IV PRN (08:35)
[2019-12-08] MEDS: LOVENOX INJ 40 MG SYR SC SCH (08:42)
[2019-12-08] MEDS: VITAMIN C PO SCH (08:43)
[2019-12-08] MEDS: ROBITUSSIN DM PO SCH ×4 (08:43→21:35)
[2019-12-08] MEDS: K-DUR TAB 20 MEQ PO PRN (08:46)
[2019-12-08] MEDS ORDERED: K-DUR TAB 20 MEQ PO ONE (08:46)
--- NOTE | 2019-12-08 10:58 | PCM.PROG ---
Progress Note Progress Note for Day of Date of Exam: 12/08/19 Subjective Subjective: Pt is a 44 y/o m w/ no pmhx admitted for COVID-19 pneumonia and acute respiratory failure. COVID positive test on 12/05/19. He is laying prone in bed this morning. Reports his breathing has improved. Labs/imaging: CXR no change from prior. Wbc 8.8, Hgb 13.8, Plt 258, Na 141, K 3.7, Cr 1.00, Gluc 247, ABG: pH 7.4/41/81/26/96% on HiFlow FiO2 80%. He is being treated with IV Solumedrol 80mg q8h, Albuterol inh, Lovenox ppx, Received 2 doses of Actemra on 12/06/19, Vitamin C. IVF NS to 75ml/h. ABG is improved, will attempt to wean FiO2 today. Continue to monitor patient and follow up labs/imaging in the morning. Past Medical Family Social History Past Med/Fam/Surg Hx: No changes since H&P Allergies: Allergies No Known Drug Allergies Allergy (Verified 12/02/19 21:30) Review of Systems ROS: No change since H&P Vital Signs and I&O's Vital Signs: Temperature 98.9 F Pulse Rate 75 Respiratory Rate 23 Blood Pressure [Right Arm] 97/60 Blood Pressure 130/64 O2 Sat by Pulse Oximetry 96 Intake and Output: Intake & Output 12/05/19 12/06/19 12/07/19 12/08/19 23:59 23:59 23:59 23:59 Intake Total 3349 / 3349 1977 / 1977 230 / 230 Output Total 2725 / 2725 2825 / 2825 350 / 350 Balance 624 / 624 -847 / -847 -120 / -120 Physical Exam Oriented: Normal Eyes: Normal Ear: Normal Nose: Normal Respiratory: Diminished and Rales Cardiovascular: Normal : Normal Auscultation: Bowel Sounds: Normal Tenderness: Normal Skin: Normal Musculoskeletal: Normal Mood Description: Calm Speech Pattern: Clear and Appropriate Laboratory and Diagnostics Result Diagrams: 12/08/19 04:52 12/08/19 04:52 Labs: 12/06/19 21:18 Sputum - Expectorated Sputum Sputum Culture - Preliminary 12/06/19 21:18 Sputum - Expectorated Sputum - Final 12/05/19 21:37 Blood Blood Culture - Preliminary 12/05/19 21:30 Blood Blood Culture - Preliminary Laboratory WBC 8.8 X10^3/uL (3.6-10.0) 12/08/19 04:52 RBC 4.79 X10^6/uL (4.7-6.0) 12/08/19 04:52 Hgb 13.8 g/dL (13.5-18.0) 12/08/19 04:52 Hct 40.1 % (42.0-54.0) L 12/08/19 04:52 MCV 83.9 fL (80.0-100.0) 12/08/19 04:52 MCH 28.9 pg (27.0-34.0) 12/08/19 04:52 MCHC 34.4 g/dL (33.0-35.0) 12/08/19 04:52 RDW 13.6 % (11.6-16.5) 12/08/19 04:52 Plt Count 258 X10^3/uL (150.0-450.0) 12/08/19 04:52 MPV 7.7 fL (7.4-11.0) 12/08/19 04:52 Neut % (Auto) 83.9 % (42.0-75.0) H 12/08/19 04:52 Lymph % (Auto) 9.8 % (21.0-51.0) L 12/08/19 04:52 [place] % (Auto) 6.3 % (0.0-13.0) 12/08/19 04:52 Eos % (Auto) 0.0 % (0.9-2.9) L 12/08/19 04:52 Baso % (Auto) 0 % (0.2-1.0) L 12/08/19 04:52 Neut # (Auto) 7.4 x10^3/uL (2.2-4.8) H 12/08/19 04:52 Lymph # (Auto) 0.9 X10^3/uL (1.3-2.9) L 12/08/19 04:52 [place] # (Auto) 0.6 x10^3/uL (0.3-0.8) 12/08/19 04:52 Eos # (Auto) 0.0 x10^3/uL (0.0-0.2) 12/08/19 04:52 Baso # (Auto) 0.0 X10^3/uL (0.0-0.1) 12/08/19 04:52 Absolute Nucleated RBC 0.0 /100WBC 12/08/19 04:52 Sample Site Lr 12/08/19 04:20 ABG pH 7.410 (7.35-7.45) 12/08/19 04:20 ABG pCO2 41.0 mmHg (35.0-45.0) 12/08/19 04:20 ABG pO2 81.0 mmHg (80.0-100.0) 12/08/19 04:20 ABG HCO3 26.0 mmol/L (22-26) 12/08/19 04:20 ABG O2 Saturation 96.0 % (90-100) 12/08/19 04:20 ABG Base Excess 1.2 mmol/L (-2.0-2.0) 12/08/19 04:20 Ernesto Test Pos 12/08/19 04:20 A-a Gradient 438.0 mmHg 12/08/19 04:20 FiO2 80.0 12/08/19 04:20 Blood Gas Comments Chilo well ae 12/08/19 04:20 Sodium 141 mmol/L (136-145) 12/08/19 04:52 Corrected Sodium 145 mmol/L (136-145) 12/08/19 04:52 Potassium 3.7 mmol/L (3.5-5.1) 12/08/19 04:52 Chloride 104 mmol/L (98-107) 12/08/19 04:52 Carbon Dioxide 25.5 mmol/L (21-32) 12/08/19 04:52 BUN 15 mg/dL (7-18) 12/08/19 04:52 Creatinine 1.00 mg/dL (0.70-1.30) 12/08/19 04:52 Est GFR (MDRD) Af Amer > 60 (>60) 12/08/19 04:52 Est GFR (MDRD) Non-Af > 60 (>60) 12/08/19 04:52 Glucose 247 mg/dL (65-99) H 12/08/19 04:52 Lactic Acid 1.3 mmol/L (0.4-2.0) 12/05/19 21:30 Calcium 8.3 mg/dL (8.5-10.1) L 12/08/19 04:52 Corrected Calcium 9.5 mg/dL (8.5-10.1) 12/08/19 04:52 Total Bilirubin 0.30 mg/dL (0.2-1.0) 12/08/19 04:52 AST 42 Units/L (15-37) H 12/08/19 04:52 ALT 68 Units/L (12-78) 12/08/19 04:52 Alkaline Phosphatase 78 Units/L (46-116) 12/08/19 04:52 C-Reactive Protein 86.40 mg/L (0-3.0) H 12/06/19 05:02 Total Protein 6.9 g/dL (6.4-8.2) 12/08/19 04:52 Albumin 2.5 g/dL (3.4-5.0) L 12/08/19 04:52 Globulin 4.4 g/dL (2.5-4.5) 12/08/19 04:52 Albumin/Globulin Ratio 0.6 Ratio (1.1-2.1) L 12/08/19 04:52 Specimen Type Clean catch urine 12/05/19 23:20 Urine Color Yellow (YELLOW) 12/05/19 23:20 Urine Appearance Clear (CLEAR) 12/05/19 23:20 Urine pH 6.5 (5.0 - 8.0) 12/05/19 23:20 Ur Specific [place] 1.010 (1.000-1.030) 12/05/19 23:20 Urine Protein 2+ (NEGATIVE) 12/05/19 23:20 Urine Glucose (UA) 2+ (NEGATIVE) 12/05/19 23:20 Urine Ketones Negative (NEGATIVE) 12/05/19 23:20 Urine Occult Blood 1+ (NEGATIVE) 12/05/19 23:20 Urine Nitrite Negative (NEGATIVE) 12/05/19 23:20 Urine Bilirubin Negative (NEGATIVE) 12/05/19 23:20 Urine Urobilinogen Normal (NORMAL) 12/05/19 23:20 Ur Leukocyte Esterase Negative (NEGATIVE) 12/05/19 23:20 Urine RBC 0-2 /HPF (0-3) 12/05/19 23:20 Urine WBC None seen /HPF (0-5) 12/05/19 23:20 Ur Squamous Epith Cells Negative /HPF (NEGATIVE) 12/05/19 23:20 Urine Bacteria Negative /HPF (NEGATIVE) 12/05/19 23:20 Urine Mucus Few /HPF (NEGATIVE) 12/05/19 23:20 Ur Culture Indicated? No/not indicated 12/05/19 23:20 Plan (1) Pneumonia due to COVID-19 virus: Status: Acute Plan: Bronchodilators, IS, Actemra x 2 doses, Solumedrol 80mg q8h. Supplemental O2. (2) Acute respiratory failure: Status: Acute
[2019-12-08] MEDS: SNACK - Diabetic Appropriate PO SCH (20:00)
[2019-12-09 05:31] LABS: BASOPHILS % (AUTO) 0.1 % (0.2-1.0); HEMATOCRIT 39.7 % (42.0-54.0); HEMOGLOBIN 13.8 g/dL (13.5-18.0); LYMPHOCYTES # (AUTO) 0.7 X10^3/uL (1.3-2.9); LYMPHOCYTES % (AUTO) 7.5 % (21.0-51.0); MEAN CORPUSCULAR HEMOGLOBIN 29.1 pg (27.0-34.0); MEAN CORPUSCULAR HGB CONC 34.9 g/dL (33.0-35.0); MEAN CORPUSCULAR VOLUME 83.5 fL (80.0-100.0); MEAN PLATELET VOLUME 7.7 fL (7.4-11.0); MONOCYTES # (AUTO) 0.6 x10^3/uL (0.3-0.8); MONOCYTES % (AUTO) 5.9 % (0.0-13.0); NEUTROPHILS # (AUTO) 8.3 x10^3/uL (2.2-4.8); NEUTROPHILS % (AUTO) 86.5 % (42.0-75.0); PLATELET COUNT 265 X10^3/uL (150.0-450.0); RED BLOOD COUNT 4.75 X10^6/uL (4.7-6.0); RED CELL DISTRIBUTION WIDTH 13.6 % (11.6-16.5); WHITE BLOOD COUNT 9.6 X10^3/uL (3.6-10.0)
[2019-12-09 05:37] LABS: ALANINE AMINOTRANSFERASE 68 Units/L (12-78); ALBUMIN 2.6 g/dL (3.4-5.0); ALKALINE PHOSPHATASE 75 Units/L (46-116); ASPARTATE AMINO TRANSFERASE 29 Units/L (15-37); BLOOD UREA NITROGEN 17 mg/dL (7-18); CALCIUM 8.2 mg/dL (8.5-10.1); CARBON DIOXIDE 27.4 mmol/L (21-32); CHLORIDE 104 mmol/L (98-107); COR CA(FOR HYPOALB) 9.3 mg/dL (8.5-10.1); COR NA(FOR HYPERGLY) 142 mmol/L (136-145); SODIUM 139 mmol/L (136-145); TOTAL PROTEIN 6.8 g/dL (6.4-8.2); eGFR NON BLACK RACES > 60 (>60)
[2019-12-09] MEDS: HumuLIN R SUBCUT PRN ×4 (05:37→21:30)
[2019-12-09] MEDS: SOLU-Medrol 125 MG VIAL IVP SCH (05:37)
[2019-12-09] MEDS: NS 1000 ML 1,000 ML IV SCH ×3 (05:44→22:11)
[2019-12-09] MEDS: LOVENOX INJ 40 MG SYR SC SCH (08:13)
[2019-12-09] MEDS: VITAMIN C PO SCH (08:13)
[2019-12-09] MEDS: K-DUR TAB 20 MEQ PO PRN (08:13)
[2019-12-09] MEDS: ROBITUSSIN DM PO SCH ×4 (08:14→21:29)
[2019-12-09] MEDS: LEVAQUIN TAB 750 MG PO SCH (08:39)
--- NOTE | 2019-12-09 08:39 | PCM.PROG ---
Progress Note Progress Note for Day of Date of Exam: 12/09/19 Subjective Subjective: Pt is a 44 y/o m w/ no pmhx admitted for COVID-19 pneumonia and acute respiratory failure. COVID positive test on 12/05/19. He is laying prone in bed, states that breathing is a little better. Labs/imaging: Wbc 9.6, Hgb 13.8, Plt 265, Na 139, K 3.8, Cr 0.90, Gluc 235. He is on HiFlo FiO2 60%. IV Solumedrol 80mg q8h, Albuterol inh, Lovenox ppx, Received 2 doses of Actemra on 12/06/19, Vitamin C. IVF NS to 75ml/h. Continue attempt to wean FiO2 today and possibly off HiFlo. SputumCx:gram negative rods x2. Will start on Levaquin. Continue to monitor patient and follow up labs/imaging in the morning. Past Medical Family Social History Past Med/Fam/Surg Hx: No changes since H&P Allergies: Allergies No Known Drug Allergies Allergy (Verified 12/02/19 21:30) Review of Systems ROS: No change since H&P Vital Signs and I&O's Vital Signs: Temperature 99.4 F Pulse Rate 62 Respiratory Rate 18 Blood Pressure [Right Arm] 97/60 Blood Pressure 128/67 O2 Sat by Pulse Oximetry 94 Intake and Output: Intake & Output 12/06/19 12/07/19 12/08/19 12/09/19 23:59 23:59 23:59 23:59 Intake Total 3349 / 3349 1977 / 1977 1767 / 1767 341 / 341 Output Total 2725 / 2725 2825 / 2825 1450 / 1450 700 / 700 Balance 624 / 624 -847 / -847 317 / 317 -359 / -359 Physical Exam Oriented: Normal Eyes: Normal Ear: Normal Nose: Normal Respiratory: Diminished and Rales Cardiovascular: Normal : Normal Auscultation: Bowel Sounds: Normal Tenderness: Normal Skin: Normal Musculoskeletal: Normal Mood Description: Calm Speech Pattern: Clear and Appropriate Laboratory and Diagnostics Result Diagrams: 12/09/19 04:58 12/09/19 04:58 Labs: 12/06/19 21:18 Sputum - Expectorated Sputum Sputum Culture - Preliminary 12/06/19 21:18 Sputum - Expectorated Sputum - Final 12/05/19 21:37 Blood Blood Culture - Preliminary 12/05/19 21:30 Blood Blood Culture - Preliminary Laboratory WBC 9.6 X10^3/uL (3.6-10.0) 12/09/19 04:58 RBC 4.75 X10^6/uL (4.7-6.0) 12/09/19 04:58 Hgb 13.8 g/dL (13.5-18.0) 12/09/19 04:58 Hct 39.7 % (42.0-54.0) L 12/09/19 04:58 MCV 83.5 fL (80.0-100.0) 12/09/19 04:58 MCH 29.1 pg (27.0-34.0) 12/09/19 04:58 MCHC 34.9 g/dL (33.0-35.0) 12/09/19 04:58 RDW 13.6 % (11.6-16.5) 12/09/19 04:58 Plt Count 265 X10^3/uL (150.0-450.0) 12/09/19 04:58 MPV 7.7 fL (7.4-11.0) 12/09/19 04:58 Neut % (Auto) 86.5 % (42.0-75.0) H 12/09/19 04:58 Lymph % (Auto) 7.5 % (21.0-51.0) L 12/09/19 04:58 [place] % (Auto) 5.9 % (0.0-13.0) 12/09/19 04:58 Eos % (Auto) 0.0 % (0.9-2.9) L 12/09/19 04:58 Baso % (Auto) 0.1 % (0.2-1.0) L 12/09/19 04:58 Neut # (Auto) 8.3 x10^3/uL (2.2-4.8) H 12/09/19 04:58 Lymph # (Auto) 0.7 X10^3/uL (1.3-2.9) L 12/09/19 04:58 [place] # (Auto) 0.6 x10^3/uL (0.3-0.8) 12/09/19 04:58 Eos # (Auto) 0.0 x10^3/uL (0.0-0.2) 12/09/19 04:58 Baso # (Auto) 0.0 X10^3/uL (0.0-0.1) 12/09/19 04:58 Absolute Nucleated RBC 0.0 /100WBC 12/09/19 04:58 Sample Site Lr 12/08/19 04:20 ABG pH 7.410 (7.35-7.45) 12/08/19 04:20 ABG pCO2 41.0 mmHg (35.0-45.0) 12/08/19 04:20 ABG pO2 81.0 mmHg (80.0-100.0) 12/08/19 04:20 ABG HCO3 26.0 mmol/L (22-26) 12/08/19 04:20 ABG O2 Saturation 96.0 % (90-100) 12/08/19 04:20 ABG Base Excess 1.2 mmol/L (-2.0-2.0) 12/08/19 04:20 Ernesto Test Pos 12/08/19 04:20 A-a Gradient 438.0 mmHg 12/08/19 04:20 FiO2 80.0 12/08/19 04:20 Blood Gas Comments Chilo well ae 12/08/19 04:20 Sodium 139 mmol/L (136-145) 12/09/19 04:58 Corrected Sodium 142 mmol/L (136-145) 12/09/19 04:58 Potassium 3.8 mmol/L (3.5-5.1) 12/09/19 04:58 Chloride 104 mmol/L (98-107) 12/09/19 04:58 Carbon Dioxide 27.4 mmol/L (21-32) 12/09/19 04:58 BUN 17 mg/dL (7-18) 12/09/19 04:58 Creatinine 0.90 mg/dL (0.70-1.30) 12/09/19 04:58 Est GFR (MDRD) Af Amer > 60 (>60) 12/09/19 04:58 Est GFR (MDRD) Non-Af > 60 (>60) 12/09/19 04:58 Glucose 235 mg/dL (65-99) H 12/09/19 04:58 Lactic Acid 1.3 mmol/L (0.4-2.0) 12/05/19 21:30 Calcium 8.2 mg/dL (8.5-10.1) L 12/09/19 04:58 Corrected Calcium 9.3 mg/dL (8.5-10.1) 12/09/19 04:58 Total Bilirubin 0.30 mg/dL (0.2-1.0) 12/09/19 04:58 AST 29 Units/L (15-37) 12/09/19 04:58 ALT 68 Units/L (12-78) 12/09/19 04:58 Alkaline Phosphatase 75 Units/L (46-116) 12/09/19 04:58 C-Reactive Protein 86.40 mg/L (0-3.0) H 12/06/19 05:02 Total Protein 6.8 g/dL (6.4-8.2) 12/09/19 04:58 Albumin 2.6 g/dL (3.4-5.0) L 12/09/19 04:58 Globulin 4.2 g/dL (2.5-4.5) 12/09/19 04:58 Albumin/Globulin Ratio 0.6 Ratio (1.1-2.1) L 12/09/19 04:58 Specimen Type Clean catch urine 12/05/19 23:20 Urine Color Yellow (YELLOW) 12/05/19 23:20 Urine Appearance Clear (CLEAR) 12/05/19 23:20 Urine pH 6.5 (5.0 - 8.0) 12/05/19 23:20 Ur Specific [place] 1.010 (1.000-1.030) 12/05/19 23:20 Urine Protein 2+ (NEGATIVE) 12/05/19 23:20 Urine Glucose (UA) 2+ (NEGATIVE) 12/05/19 23:20 Urine Ketones Negative (NEGATIVE) 12/05/19 23:20 Urine Occult Blood 1+ (NEGATIVE) 12/05/19 23: Urine Nitrite Negative (NEGATIVE) 12/05/19 23:20 Urine Bilirubin Negative (NEGATIVE) 12/05/19 23:20 Urine Urobilinogen Normal (NORMAL) 12/05/19 23:20 Ur Leukocyte Esterase Negative (NEGATIVE) 12/05/19 23:20 Urine RBC 0-2 /HPF (0-3) 12/05/19 23:20 Urine WBC None seen /HPF (0-5) 12/05/19 23:20 Ur Squamous Epith Cells Negative /HPF (NEGATIVE) 12/05/19 23:20 Urine Bacteria Negative /HPF (NEGATIVE) 12/05/19 23:20 Urine Mucus Few /HPF (NEGATIVE) 12/05/19 23:20 Ur Culture Indicated? No/not indicated 12/05/19 23:20 Plan (1) Pneumonia due to COVID-19 virus: Status: Acute Plan: Bronchodilators, IS, Actemra x 2 doses, Solumedrol 80mg q8h. Supplemental O2. (2) Acute respiratory failure: Status: Acute
[2019-12-09] MEDS: VENTOLIN or PROAIR HFA IN PRN ×4 (09:40→21:35)
[2019-12-09] MEDS: SNACK - Diabetic Appropriate PO SCH (21:29)
[2019-12-10 05:30] LABS: BASOPHILS % (AUTO) 0.1 % (0.2-1.0); HEMATOCRIT 40.4 % (42.0-54.0); HEMOGLOBIN 14.2 g/dL (13.5-18.0); LYMPHOCYTES % (AUTO) 12.2 % (21.0-51.0); MEAN CORPUSCULAR HEMOGLOBIN 29.4 pg (27.0-34.0); MEAN CORPUSCULAR HGB CONC 35.2 g/dL (33.0-35.0); MEAN CORPUSCULAR VOLUME 83.6 fL (80.0-100.0); MEAN PLATELET VOLUME 7.5 fL (7.4-11.0); MONOCYTES # (AUTO) 0.8 x10^3/uL (0.3-0.8); MONOCYTES % (AUTO) 9.4 % (0.0-13.0); NEUTROPHILS # (AUTO) 6.4 x10^3/uL (2.2-4.8); NEUTROPHILS % (AUTO) 78.3 % (42.0-75.0); PLATELET COUNT 276 X10^3/uL (150.0-450.0); RED BLOOD COUNT 4.83 X10^6/uL (4.7-6.0); RED CELL DISTRIBUTION WIDTH 13.6 % (11.6-16.5); WHITE BLOOD COUNT 8.2 X10^3/uL (3.6-10.0)
[2019-12-10 05:47] LABS: ALANINE AMINOTRANSFERASE 61 Units/L (12-78); ALBUMIN 2.6 g/dL (3.4-5.0); ALKALINE PHOSPHATASE 79 Units/L (46-116); ASPARTATE AMINO TRANSFERASE 22 Units/L (15-37); BLOOD UREA NITROGEN 16 mg/dL (7-18); CARBON DIOXIDE 26.8 mmol/L (21-32); CHLORIDE 105 mmol/L (98-107); COR CA(FOR HYPOALB) 9.1 mg/dL (8.5-10.1); COR NA(FOR HYPERGLY) 141 mmol/L (136-145); CREATININE 0.87 mg/dL (0.70-1.30); SODIUM 138 mmol/L (136-145); TOTAL PROTEIN 6.6 g/dL (6.4-8.2); eGFR NON BLACK RACES > 60 (>60)
[2019-12-10] MEDS: NS 1000 ML 1,000 ML IV SCH ×4 (06:18→21:00)
[2019-12-10] MEDS: HumuLIN R SUBCUT PRN ×3 (06:25→20:11)
[2019-12-10] MEDS: VITAMIN C PO SCH (08:28)
[2019-12-10] MEDS: LOVENOX INJ 40 MG SYR SC SCH (08:28)
[2019-12-10] MEDS: ROBITUSSIN DM PO SCH ×4 (08:28→20:10)
[2019-12-10] MEDS: LEVAQUIN TAB 750 MG PO SCH (08:28)
--- NOTE | 2019-12-10 09:31 | PCM.PROG ---
Progress Note Progress Note for Day of Date of Exam: 12/10/19 Subjective Subjective: Pt is a 44 y/o m w/ no pmhx admitted for COVID-19 pneumonia and acute respiratory failure. COVID positive test on 12/05/19. He is sitting up in bed this morning, reporting some improvement. Labs/imaging: Wbc 8.2, Hgb 14.2, Plt 276, Na 138, K 3.6, Cr 0.87, Gluc 227. He is on HiFlo and yesterday FiO2 weaned down 60%>30%, will continue to attempt weaning based on clinical status. Continue treatments IV Solumedrol 80mg q8h, Albuterol inh, Lovenox ppx, Received Actemra(162mg x 2) on 12/06/19, Vitamin C. IVF NS@KVO. Continue attempt to wean FiO2 today and possibly off HiFlo. SputumCx: Ewingella Americana, Enterobacter agglomerans. Continue Levaquin, monitor patient, and follow up labs/imaging in the morning. Past Medical Family Social History Past Med/Fam/Surg Hx: No changes since H&P Allergies: Allergies No Known Drug Allergies Allergy (Verified 12/02/19 21:30) Review of Systems ROS: No change since H&P Vital Signs and I&O's Vital Signs: Temperature 98.6 F Pulse Rate 54 Respiratory Rate 23 Blood Pressure [Right Arm] 97/60 Blood Pressure 129/73 O2 Sat by Pulse Oximetry 95 Intake and Output: Intake & Output 12/07/19 12/08/19 12/09/19 12/10/19 23:59 23:59 23:59 23:59 Intake Total 1977 1767 / 1767 1489 / 1489 244 / 244 Output Total 2825 / 2825 1450 / 1450 1000 / 1000 Balance -847 / -847 317 / 317 489 / 489 244 / 244 Physical Exam Oriented: Normal Eyes: Normal Ear: Normal Nose: Normal Respiratory: Diminished and Rales Cardiovascular: Normal : Normal Auscultation: Bowel Sounds: Normal Tenderness: Normal Skin: Normal Musculoskeletal: Normal Mood Description: Calm Speech Pattern: Clear and Appropriate Laboratory and Diagnostics Result Diagrams: 12/10/19 04:57 12/10/19 04:57 Labs: 12/06/19 21:18 Sputum - Expectorated Sputum Sputum Culture - Preliminary 12/06/19 21:18 Sputum - Expectorated Sputum - Final 12/05/19 21:37 Blood Blood Culture - Preliminary 12/05/19 21:30 Blood Blood Culture - Preliminary Laboratory WBC 8.2 X10^3/uL (3.6-10.0) 12/10/19 04:57 RBC 4.83 X10^6/uL (4.7-6.0) 12/10/19 04:57 Hgb 14.2 g/dL (13.5-18.0) 12/10/19 04:57 Hct 40.4 % (42.0-54.0) L 12/10/19 04:57 MCV 83.6 fL (80.0-100.0) 12/10/19 04:57 MCH 29.4 pg (27.0-34.0) 12/10/19 04:57 MCHC 35.2 g/dL (33.0-35.0) H 12/10/19 04:57 RDW 13.6 % (11.6-16.5) 12/10/19 04:57 Plt Count 276 X10^3/uL (150.0-450.0) 12/10/19 04:57 MPV 7.5 fL (7.4-11.0) 12/10/19 04:57 Neut % (Auto) 78.3 % (42.0-75.0) H 12/10/19 04:57 Lymph % (Auto) 12.2 % (21.0-51.0) L 12/10/19 04:57 [place] % (Auto) 9.4 % (0.0-13.0) 12/10/19 04:57 Eos % (Auto) 0.0 % (0.9-2.9) L 12/10/19 04:57 Baso % (Auto) 0.1 % (0.2-1.0) L 12/10/19 04:57 Neut # (Auto) 6.4 x10^3/uL (2.2-4.8) H 12/10/19 04:57 Lymph # (Auto) 1.0 X10^3/uL (1.3-2.9) L 12/10/19 04:57 [place] # (Auto) 0.8 x10^3/uL (0.3-0.8) 12/10/19 04:57 Eos # (Auto) 0.0 x10^3/uL (0.0-0.2) 12/10/19 04:57 Baso # (Auto) 0.0 X10^3/uL (0.0-0.1) 12/10/19 04:57 Absolute Nucleated RBC 0.0 /100WBC 12/10/19 04:57 Sample Site Lr 12/08/19 04:20 ABG pH 7.410 (7.35-7.45) 12/08/19 04:20 ABG pCO2 41.0 mmHg (35.0-45.0) 12/08/19 04:20 ABG pO2 81.0 mmHg (80.0-100.0) 12/08/19 04:20 ABG HCO3 26.0 mmol/L (22-26) 12/08/19 04:20 ABG O2 Saturation 96.0 % (90-100) 12/08/19 04:20 ABG Base Excess 1.2 mmol/L (-2.0-2.0) 12/08/19 04:20 Ernesto Test Pos 12/08/19 04:20 A-a Gradient 438.0 mmHg 12/08/19 04:20 FiO2 80.0 12/08/19 04:20 Blood Gas Comments Chilo well ae 12/08/19 04:20 Sodium 138 mmol/L (136-145) 12/10/19 04:57 Corrected Sodium 141 mmol/L (136-145) 12/10/19 04:57 Potassium 3.6 mmol/L (3.5-5.1) 12/10/19 04:57 Chloride 105 mmol/L (98-107) 12/10/19 04:57 Carbon Dioxide 26.8 mmol/L (21-32) 12/10/19 04:57 BUN 16 mg/dL (7-18) 12/10/19 04:57 Creatinine 0.87 mg/dL (0.70-1.30) 12/10/19 04:57 Est GFR (MDRD) Af Amer > 60 (>60) 12/10/19 04:57 Est GFR (MDRD) Non-Af > 60 (>60) 12/10/19 04:57 Glucose 227 mg/dL (65-99) H 12/10/19 04:57 Lactic Acid 1.3 mmol/L (0.4-2.0) 12/05/19 21:30 Calcium 8.0 mg/dL (8.5-10.1) L 12/10/19 04:57 Corrected Calcium 9.1 mg/dL (8.5-10.1) 12/10/19 04:57 Total Bilirubin 0.40 mg/dL (0.2-1.0) 12/10/19 04:57 AST 22 Units/L (15-37) 12/10/19 04:57 ALT 61 Units/L (12-78) 12/10/19 04:57 Alkaline Phosphatase 79 Units/L (46-116) 12/10/19 04:57 C-Reactive Protein 86.40 mg/L (0-3.0) H 12/06/19 05:02 Total Protein 6.6 g/dL (6.4-8.2) 12/10/19 04:57 Albumin 2.6 g/dL (3.4-5.0) L 12/10/19 04:57 Globulin 4.0 g/dL (2.5-4.5) 12/10/19 04:57 Albumin/Globulin Ratio 0.7 Ratio (1.1-2.1) L 12/10/19 04:57 Specimen Type Clean catch urine 12/05/19 23:20 Urine Color Yellow (YELLOW) 12/05/19 23:20 Urine Appearance Clear (CLEAR) 12/05/19 23:20 Urine pH 6.5 (5.0 - 8.0) 12/05/19 23:20 Ur Specific [place] 1.010 (1.000-1.030) 12/05/19 23:20 Urine Protein 2+ (NEGATIVE) 12/05/19 23:20 Urine Glucose (UA) 2+ (NEGATIVE) 12/05/19 23:20 Urine Ketones Negative (NEGATIVE) 12/05/19 23:20 Urine Occult Blood 1+ (NEGATIVE) 12/05/19 23:20 Urine Nitrite Negative (NEGATIVE) 12/05/19 23:20 Urine Bilirubin Negative (NEGATIVE) 12/05/19 23:20 Urine Urobilinogen Normal (NORMAL) 12/05/19 23:20 Ur Leukocyte Esterase Negative (NEGATIVE) 12/05/19 23:20 Urine RBC 0-2 /HPF (0-3) 12/05/19 23:20 Urine WBC None seen /HPF (0-5) 12/05/19 23:20 Ur Squamous Epith Cells Negative /HPF (NEGATIVE) 12/05/19 23:20 Urine Bacteria Negative /HPF (NEGATIVE) 12/05/19 23:20 Urine Mucus Few /HPF (NEGATIVE) 12/05/19 23:20 Ur Culture Indicated? No/not indicated 12/05/19 23:20 Plan (1) Pneumonia due to COVID-19 virus: Status: Acute Plan: Bronchodilators, IS, Actemra x 2 doses, Solumedrol 80mg q8h. Supplemental O2. (2) Acute respiratory failure: Status: Acute
[2019-12-10] MEDS: VENTOLIN or PROAIR HFA IN PRN ×3 (09:40→20:25)
[2019-12-10] MEDS: SNACK - Diabetic Appropriate PO SCH (20:10)
[2019-12-10] MEDS: K-DUR TAB 20 MEQ PO PRN (20:11)
[2019-12-11] MEDS: NS 1000 ML 1,000 ML IV SCH ×3 (05:00→21:38)
[2019-12-11 05:22] LABS: BASOPHILS % (AUTO) 0.2 % (0.2-1.0); EOSINOPHILS % (AUTO) 0.6 % (0.9-2.9); HEMATOCRIT 41.6 % (42.0-54.0); HEMOGLOBIN 14.5 g/dL (13.5-18.0); LYMPHOCYTES # (AUTO) 1.5 X10^3/uL (1.3-2.9); MEAN CORPUSCULAR HEMOGLOBIN 29.3 pg (27.0-34.0); MEAN CORPUSCULAR HGB CONC 34.9 g/dL (33.0-35.0); MEAN CORPUSCULAR VOLUME 84.1 fL (80.0-100.0); MEAN PLATELET VOLUME 7.4 fL (7.4-11.0); MONOCYTES # (AUTO) 0.5 x10^3/uL (0.3-0.8); MONOCYTES % (AUTO) 9.2 % (0.0-13.0); NEUTROPHILS # (AUTO) 2.9 x10^3/uL (2.2-4.8); PLATELET COUNT 267 X10^3/uL (150.0-450.0); RED BLOOD COUNT 4.94 X10^6/uL (4.7-6.0); RED CELL DISTRIBUTION WIDTH 13.5 % (11.6-16.5); WHITE BLOOD COUNT 4.9 X10^3/uL (3.6-10.0)
[2019-12-11 05:33] LABS: ALANINE AMINOTRANSFERASE 67 Units/L (12-78); ALBUMIN 2.5 g/dL (3.4-5.0); ALKALINE PHOSPHATASE 64 Units/L (46-116); ASPARTATE AMINO TRANSFERASE 28 Units/L (15-37); BLOOD UREA NITROGEN 17 mg/dL (7-18); CALCIUM 7.9 mg/dL (8.5-10.1); CARBON DIOXIDE 28.3 mmol/L (21-32); CHLORIDE 106 mmol/L (98-107); COR CA(FOR HYPOALB) 9.1 mg/dL (8.5-10.1); COR NA(FOR HYPERGLY) 140 mmol/L (136-145); CREATININE 0.92 mg/dL (0.70-1.30); SODIUM 140 mmol/L (136-145); TOTAL PROTEIN 6.2 g/dL (6.4-8.2); eGFR NON BLACK RACES > 60 (>60)
[2019-12-11] MEDS: LEVAQUIN TAB 750 MG PO SCH (08:43)
[2019-12-11] MEDS: ROBITUSSIN DM PO SCH ×4 (08:43→20:07)
[2019-12-11] MEDS: VITAMIN C PO SCH (08:43)
[2019-12-11] MEDS: LOVENOX INJ 40 MG SYR SC SCH (08:44)
--- NOTE | 2019-12-11 11:23 | PCM.PROG ---
Progress Note Progress Note for Day of Date of Exam: 12/11/19 Subjective Subjective: Pt is a 44 y/o m w/ no pmhx admitted for COVID-19 pneumonia and acute respiratory failure. COVID positive test on 12/05/19. He is sitting up in bed eating his breakfast, reporting feeling a lot better this morning. Labs/imaging: Wbc 4.9, Hgb 14.5, Plt 267, Na 140, K 3.7, Cr 0.92, Gluc 116. He was able to be weaned off of HiFlo and is on 2Lnc. Will continue weaning based on clinical status. Continue treatments IV Solumedrol 80mg q8h, Albuterol inh, Lovenox ppx, Received Actemra(162mg x 2) on 12/06/19, Vitamin C. IVF NS@KVO. SputumCx: Ewingella Americana, Enterobacter agglomerans. Continue Levaquin, monitor patient, and follow up labs/imaging in the morning. Past Medical Family Social History Past Med/Fam/Surg Hx: No changes since H&P Allergies: Allergies No Known Drug Allergies Allergy (Verified 12/02/19 21:30) Review of Systems ROS: No change since H&P Vital Signs and I&O's Vital Signs: Temperature 98.7 F Pulse Rate 74 Respiratory Rate 27 Blood Pressure [Right Arm] 97/60 Blood Pressure 116/77 O2 Sat by Pulse Oximetry 92 Intake and Output: Intake & Output 12/08/19 12/09/19 12/10/19 12/11/19 23:59 23:59 23:59 23:59 Intake Total 1767 / 1767 1489 / 1489 1324 / 1324 360 / 360 Output Total 1450 / 1450 1000 / 1000 2300 / 2300 600 / 600 Balance 317 / 317 489 / 489 -976 / -976 -240 / -240 Physical Exam Oriented: Normal Eyes: Normal Ear: Normal Nose: Normal Respiratory: Diminished and Rales Cardiovascular: Normal : Normal Auscultation: Bowel Sounds: Normal Tenderness: Normal Skin: Normal Musculoskeletal: Normal Mood Description: Calm Speech Pattern: Clear and Appropriate Laboratory and Diagnostics Result Diagrams: 12/11/19 04:51 12/11/19 05:00 Labs: 12/05/19 21:37 Blood Blood Culture - Final 12/05/19 21:30 Blood Blood Culture - Final 12/06/19 21:18 Sputum - Expectorated Sputum Sputum Culture - Final Ewingella Americana Enterobacter Agglomerans 12/06/19 21:18 Sputum - Expectorated Sputum - Final Laboratory WBC 4.9 X10^3/uL (3.6-10.0) 12/11/19 04:51 RBC 4.94 X10^6/uL (4.7-6.0) 12/11/19 04:51 Hgb 14.5 g/dL (13.5-18.0) 12/11/19 04:51 Hct 41.6 % (42.0-54.0) L 12/11/19 04:51 MCV 84.1 fL (80.0-100.0) 12/11/19 04:51 MCH 29.3 pg (27.0-34.0) 12/11/19 04:51 MCHC 34.9 g/dL (33.0-35.0) 12/11/19 04:51 RDW 13.5 % (11.6-16.5) 12/11/19 04:51 Plt Count 267 X10^3/uL (150.0-450.0) 12/11/19 04:51 MPV 7.4 fL (7.4-11.0) 12/11/19 04:51 Neut % (Auto) 59.0 % (42.0-75.0) 12/11/19 04:51 Lymph % (Auto) 31.0 % (21.0-51.0) 12/11/19 04:51 [place] % (Auto) 9.2 % (0.0-13.0) 12/11/19 04:51 Eos % (Auto) 0.6 % (0.9-2.9) L 12/11/19 04:51 Baso % (Auto) 0.2 % (0.2-1.0) 12/11/19 04:51 Neut # (Auto) 2.9 x10^3/uL (2.2-4.8) 12/11/19 04:51 Lymph # (Auto) 1.5 X10^3/uL (1.3-2.9) 12/11/19 04:51 [place] # (Auto) 0.5 x10^3/uL (0.3-0.8) 12/11/19 04:51 Eos # (Auto) 0.0 x10^3/uL (0.0-0.2) 12/11/19 04:51 Baso # (Auto) 0.0 X10^3/uL (0.0-0.1) 12/11/19 04:51 Absolute Nucleated RBC 0.1 /100WBC 12/11/19 04:51 Sample Site Lr 12/08/19 04:20 ABG pH 7.410 (7.35-7.45) 12/08/19 04:20 ABG pCO2 41.0 mmHg (35.0-45.0) 12/08/19 04:20 ABG pO2 81.0 mmHg (80.0-100.0) 12/08/19 04:20 ABG HCO3 26.0 mmol/L (22-26) 12/08/19 04:20 ABG O2 Saturation 96.0 % (90-100) 12/08/19 04:20 ABG Base Excess 1.2 mmol/L (-2.0-2.0) 12/08/19 04:20 Ernesto Test Pos 12/08/19 04:20 A-a Gradient 438.0 mmHg 12/08/19 04:20 FiO2 80.0 12/08/19 04:20 Blood Gas Comments [place] well ae 12/08/19 04:20 Sodium 140 mmol/L (136-145) 12/11/19 05:00 Corrected Sodium 140 mmol/L (136-145) 12/11/19 05:00 Potassium 3.7 mmol/L (3.5-5.1) 12/11/19 05:00 Chloride 106 mmol/L (98-107) 12/11/19 05:00 Carbon Dioxide 28.3 mmol/L (21-32) 12/11/19 05:00 BUN 17 mg/dL (7-18) 12/11/19 05:00 Creatinine 0.92 mg/dL (0.70-1.30) 12/11/19 05:00 Est GFR (MDRD) Af Amer > 60 (>60) 12/11/19 05:00 Est GFR (MDRD) Non-Af > 60 (>60) 12/11/19 05:00 Glucose 116 mg/dL (65-99) H 12/11/19 05:00 Lactic Acid 1.3 mmol/L (0.4-2.0) 12/05/19 21:30 Calcium 7.9 mg/dL (8.5-10.1) L 12/11/19 05:00 Corrected Calcium 9.1 mg/dL (8.5-10.1) 12/11/19 05:00 Total Bilirubin 0.40 mg/dL (0.2-1.0) 12/11/19 05:00 AST 28 Units/L (15-37) 12/11/19 05:00 ALT 67 Units/L (12-78) 12/11/19 05:00 Alkaline Phosphatase 64 Units/L (46-116) 12/11/19 05:00 C-Reactive Protein 86.40 mg/L (0-3.0) H 12/06/19 05:02 Total Protein 6.2 g/dL (6.4-8.2) L 12/11/19 05:00 Albumin 2.5 g/dL (3.4-5.0) L 12/11/19 05:00 Globulin 3.7 g/dL (2.5-4.5) 12/11/19 05:00 Albumin/Globulin Ratio 0.7 Ratio (1.1-2.1) L 12/11/19 05:00 Specimen Type Clean catch urine 12/05/19 23:20 Urine Color Yellow (YELLOW) 12/05/19 23:20 Urine Appearance Clear (CLEAR) 12/05/19 23:20 Urine pH 6.5 (5.0 - 8.0) 12/05/19 23:20 Ur Specific [place] 1.010 (1.000-1.030) 12/05/19 23:20 Urine Protein 2+ (NEGATIVE) 12/05/19 23:20 Urine Glucose (UA) 2+ (NEGATIVE) 12/05/19 23:20 Urine Ketones Negative (NEGATIVE) 12/05/19 23: Urine Occult Blood 1+ (NEGATIVE) 12/05/19 23:20 Urine Nitrite Negative (NEGATIVE) 12/05/19 23:20 Urine Bilirubin Negative (NEGATIVE) 12/05/19 23:20 Urine Urobilinogen Normal (NORMAL) 12/05/19 23:20 Ur Leukocyte Esterase Negative (NEGATIVE) 12/05/19 23:20 Urine RBC 0-2 /HPF (0-3) 12/05/19 23:20 Urine WBC None seen /HPF (0-5) 12/05/19 23:20 Ur Squamous Epith Cells Negative /HPF (NEGATIVE) 12/05/19 23:20 Urine Bacteria Negative /HPF (NEGATIVE) 12/05/19 23:20 Urine Mucus Few /HPF (NEGATIVE) 12/05/19 23:20 Ur Culture Indicated? No/not indicated 12/05/19 23:20 Plan (1) Pneumonia due to COVID-19 virus: Status: Acute Plan: Bronchodilators, IS, Actemra x 2 doses, Solumedrol 80mg q8h. Supplemental O2. (2) Acute respiratory failure: Status: Acute
[2019-12-11] MEDS: HumuLIN R SUBCUT PRN ×3 (11:27→20:08)
[2019-12-11] MEDS: SNACK - Diabetic Appropriate PO SCH (20:05)
[2019-12-11] MEDS: K-DUR TAB 20 MEQ PO PRN (20:20)
[2019-12-12] MEDS: VENTOLIN or PROAIR HFA IN PRN (04:25)
[2019-12-12 05:24] LABS: BASOPHILS % (AUTO) 0.4 % (0.2-1.0); EOSINOPHILS # (AUTO) 0.1 x10^3/uL (0.0-0.2); EOSINOPHILS % (AUTO) 1.6 % (0.9-2.9); HEMATOCRIT 43.5 % (42.0-54.0); HEMOGLOBIN 15.1 g/dL (13.5-18.0); LYMPHOCYTES # (AUTO) 1.5 X10^3/uL (1.3-2.9); LYMPHOCYTES % (AUTO) 28.2 % (21.0-51.0); MEAN CORPUSCULAR HEMOGLOBIN 28.8 pg (27.0-34.0); MEAN CORPUSCULAR HGB CONC 34.6 g/dL (33.0-35.0); MEAN CORPUSCULAR VOLUME 83.3 fL (80.0-100.0); MEAN PLATELET VOLUME 7.3 fL (7.4-11.0); MONOCYTES # (AUTO) 0.5 x10^3/uL (0.3-0.8); MONOCYTES % (AUTO) 9.2 % (0.0-13.0); NEUTROPHILS # (AUTO) 3.1 x10^3/uL (2.2-4.8); NEUTROPHILS % (AUTO) 60.6 % (42.0-75.0); PLATELET COUNT 283 X10^3/uL (150.0-450.0); RED BLOOD COUNT 5.22 X10^6/uL (4.7-6.0); RED CELL DISTRIBUTION WIDTH 13.6 % (11.6-16.5); WHITE BLOOD COUNT 5.2 X10^3/uL (3.6-10.0)
[2019-12-12] MEDS: NS 1000 ML 1,000 ML IV SCH (05:26)
[2019-12-12 05:39] LABS: BLOOD UREA NITROGEN 13 mg/dL (7-18); CALCIUM 7.9 mg/dL (8.5-10.1); CARBON DIOXIDE 26.7 mmol/L (21-32); CHLORIDE 105 mmol/L (98-107); COR NA(FOR HYPERGLY) 139 mmol/L (136-145); CREATININE 0.92 mg/dL (0.70-1.30); SODIUM 138 mmol/L (136-145); eGFR NON BLACK RACES > 60 (>60)
--- NOTE | 2019-12-12 08:45 | W.DIS.FURT ---
Summary of Discharge Discharge Summary of Date Date of Exam: 12/12/19 Admission Date Date of Admission: 12/06/19 Admission Diagnosis Patient Problems (Updated 12/06/19 @ 11:27 by Feng Kaye) Acute respiratory failure (Acute) J96.00 Hypoxia (Acute) R09.02 Pneumonia due to COVID-19 virus (Acute) U07.1, J12.89 Fever (Acute) R50.9 Pneumonia (Acute) J18.9 Generalized weakness (Acute) R53.1 Hospital Course: Pt is a 44 y/o m w/ no pmhx admitted for COVID-19 pneumonia(positive on 12/05/19) and acute respiratory failure. His hospital course required high flow oxygen. His treatments included IV Solumedrol 80mg q8h, Albuterol inh, Lovenox ppx, Received Actemra(162mg x 2) on 12/06/19, Vitamin C. He had a SputumCx: Ewingella Americana, Enterobacter agglomerans. He was treated with Levaquin. His oxygen requirement gradually improved, was able to be switched over to nasal cannula, and then on discharge did not require any oxygen for pulse ox >90% on RA. Pt vitals and labs wnl, stable on discharge. Rx Levaquin and prednisone course to complete. Recommend follow up with pcp in 2 weeks. Vital Signs: Vital Signs (72 hours) 12/09/19 09:00 12/09/19 09:40 12/09/19 10:00 Temperature Pulse Rate 87 86 87 Respiratory Rate 23 28 H 23 Blood Pressure 116/70 120/71 O2 Sat by Pulse Oximetry 93 L 93 L 93 L 12/09/19 11:00 12/09/19 12:00 12/09/19 13:00 Temperature 97.9 F Pulse Rate 82 68 100 H Respiratory Rate 15 24 25 H Blood Pressure 118/75 142/73 125/71 O2 Sat by Pulse Oximetry 92 L 94 L 92 L 12/09/19 13:15 12/09/19 14:00 12/09/19 15:00 Temperature Pulse Rate 96 H 81 75 Respiratory Rate 26 H 21 24 Blood Pressure 128/74 138/76 O2 Sat by Pulse Oximetry 92 L 96 94 L 12/09/19 16:00 12/09/19 17:00 12/09/19 17:10 Temperature 98.8 F Pulse Rate 79 78 80 Respiratory Rate 23 24 22 Blood Pressure 130/81 106/68 O2 Sat by Pulse Oximetry 93 L 94 L 94 L 12/09/19 18:00 12/09/19 19:00 12/09/19 19:15 Temperature Pulse Rate 90 79 75 Respiratory Rate 22 Blood Pressure 115/79 120/76 O2 Sat by Pulse Oximetry 94 L 93 L 94 L 12/09/19 19:30 12/09/19 19:45 12/09/19 20:00 Temperature 98.1 F Pulse Rate 67 69 69 Respiratory Rate Blood Pressure 126/78 O2 Sat by Pulse Oximetry 94 L 93 L 92 L 12/09/19 20:17 12/09/19 20:30 12/09/19 20:45 Temperature Pulse Rate 63 70 72 Respiratory Rate 34 H 27 H 35 H Blood Pressure O2 Sat by Pulse Oximetry 94 L 93 L 92 L 12/09/19 21:00 12/09/19 21:15 12/09/19 21:35 Temperature Pulse Rate 68 71 84 Respiratory Rate 34 H 36 H 21 Blood Pressure 121/73 O2 Sat by Pulse Oximetry 91 L 92 L 93 L 12/09/19 21:45 12/09/19 22:00 12/09/19 22:30 Temperature Pulse Rate 64 74 69 Respiratory Rate 31 H Blood Pressure 129/87 O2 Sat by Pulse Oximetry 92 L 92 L 95 12/09/19 22:45 12/09/19 23:00 12/09/19 23:01 Temperature Pulse Rate 69 67 69 Respiratory Rate 39 H 30 H 32 H Blood Pressure O2 Sat by Pulse Oximetry 96 93 L 95 12/09/19 23:15 12/09/19 23:30 12/09/19 23:45 Temperature Pulse Rate 68 69 74 Respiratory Rate 33 H 29 H 28 H Blood Pressure O2 Sat by Pulse Oximetry 95 94 L 94 L 12/10/19 00:00 12/10/19 00:15 12/10/19 00:30 Temperature 98.2 F Pulse Rate 78 72 75 Respiratory Rate Blood Pressure O2 Sat by Pulse Oximetry 91 L 91 L 92 L 12/10/19 00:45 12/10/19 01:00 12/10/19 01:05 Temperature Pulse Rate 90 85 58 L Respiratory Rate Blood Pressure 118/74 O2 Sat by Pulse Oximetry 92 L 92 L 94 L 12/10/19 01:15 12/10/19 01:33 12/10/19 01:45 Temperature Pulse Rate 70 58 L 63 Respiratory Rate Blood Pressure O2 Sat by Pulse Oximetry 94 L 94 L 95 12/10/19 02:00 12/10/19 02:01 12/10/19 02:15 Temperature Pulse Rate 68 75 69 Respiratory Rate Blood Pressure 103/59 O2 Sat by Pulse Oximetry 92 L 94 L 94 L 12/10/19 02:45 12/10/19 03:00 12/10/19 03:01 Temperature Pulse Rate 51 L 54 L 53 L Respiratory Rate 30 H 21 26 H Blood Pressure 154/77 O2 Sat by Pulse Oximetry 98 94 L 96 12/10/19 03:15 12/10/19 03:30 12/10/19 03:45 Temperature Pulse Rate 52 L 52 L 52 L Respiratory Rate 22 20 26 H Blood Pressure O2 Sat by Pulse Oximetry 96 96 96 12/10/19 04:00 12/10/19 04:01 12/10/19 04:15 Temperature 98.2 F Pulse Rate 53 L 53 L 54 L Respiratory Rate 22 22 20 Blood Pressure 152/77 O2 Sat by Pulse Oximetry 94 L 96 96 12/10/19 04:45 12/10/19 05:00 12/10/19 05:15 Temperature Pulse Rate 53 L 55 L 55 L Respiratory Rate 29 H 34 H 44 H Blood Pressure 140/73 O2 Sat by Pulse Oximetry 96 94 L 97 12/10/19 05:30 12/10/19 05:45 12/10/19 06:00 Temperature Pulse Rate 55 L 55 L 53 L Respiratory Rate 36 H 36 H 27 H Blood Pressure 141/76 O2 Sat by Pulse Oximetry 97 96 94 L 12/10/19 06:15 12/10/19 06:30 12/10/19 07:01 Temperature Pulse Rate 55 L 57 L 54 L Respiratory Rate 22 24 27 H Blood Pressure 158/71 O2 Sat by Pulse Oximetry 96 96 94 L 12/10/19 08:01 12/10/19 08:14 12/10/19 08:50 Temperature 98.6 F Pulse Rate 57 L 54 L Respiratory Rate 0 L 0 L 23 Blood Pressure 129/73 O2 Sat by Pulse Oximetry 94 L 95 12/10/19 09:00 12/10/19 09:40 12/10/19 10:00 Temperature Pulse Rate 57 L 66 92 H Respiratory Rate 28 H Blood Pressure 130/74 117/72 O2 Sat by Pulse Oximetry 93 L 93 L 92 L 12/10/19 11:00 12/10/19 11:11 12/10/19 12:00 Temperature Pulse Rate 78 79 65 Respiratory Rate 0 L 0 L 0 L Blood Pressure 110/69 119/75 O2 Sat by Pulse Oximetry 93 L 94 L 94 L 12/10/19 12:31 12/10/19 12:33 12/10/19 13:00 Temperature Pulse Rate 78 Respiratory Rate 0 L 19 Blood Pressure 119/79 O2 Sat by Pulse Oximetry 94 L 12/10/19 13:10 12/10/19 14:01 12/10/19 14:08 Temperature Pulse Rate 75 63 64 Respiratory Rate 0 L 0 L Blood Pressure 146/78 O2 Sat by Pulse Oximetry 95 97 96 12/10/19 14:11 12/10/19 15:00 12/10/19 16:00 Temperature 97.9 F Pulse Rate 82 59 L Respiratory Rate 21 0 L 0 L Blood Pressure 120/77 130/82 O2 Sat by Pulse Oximetry 93 L 94 L 12/10/19 17:01 12/10/19 17:55 12/10/19 18:01 Temperature Pulse Rate 78 74 Respiratory Rate 0 L Blood Pressure 162/90 105/71 O2 Sat by Pulse Oximetry 95 96 12/10/19 18:03 12/10/19 19:00 12/10/19 20:00 Temperature 98.6 F Pulse Rate 74 70 Respiratory Rate 21 28 H 24 Blood Pressure 115/75 122/88 O2 Sat by Pulse Oximetry 96 92 L 12/10/19 20:25 12/10/19 21:00 12/10/19 22:00 Temperature Pulse Rate 64 70 58 L Respiratory Rate 24 18 Blood Pressure 118/81 126/76 O2 Sat by Pulse Oximetry 94 L 96 97 12/10/19 23:00 12/11/19 00:00 12/11/19 01:00 Temperature 98.2 F Pulse Rate 63 55 L 59 L Respiratory Rate 12 21 22 Blood Pressure 127/66 130/79 145/78 O2 Sat by Pulse Oximetry 96 97 96 12/11/19 02:00 12/11/19 03:00 12/11/19 04:00 Temperature 98.2 F Pulse Rate 55 L 65 60 Respiratory Rate 23 23 30 H Blood Pressure 127/60 116/74 127/84 O2 Sat by Pulse Oximetry 97 97 96 12/11/19 05:00 12/11/19 06:00 12/11/19 07:00 Temperature Pulse Rate 63 58 L 57 L Respiratory Rate 24 17 26 H Blood Pressure 116/74 127/63 144/83 O2 Sat by Pulse Oximetry 96 95 94 L 12/11/19 08:01 12/11/19 09:00 12/11/19 09:40 Temperature 98.7 F Pulse Rate 87 75 88 Respiratory Rate 33 H 30 H Blood Pressure 132/76 118/75 O2 Sat by Pulse Oximetry 90 L 92 L 93 L 12/11/19 10:00 12/11/19 10:36 12/11/19 11:00 Temperature Pulse Rate 84 74 68 Respiratory Rate 27 H 29 H Blood Pressure 116/77 117/78 O2 Sat by Pulse Oximetry 92 L 92 L 91 L 12/11/19 11:24 12/11/19 12:00 12/11/19 13:01 Temperature 98.0 F Pulse Rate 75 68 Respiratory Rate 12 24 Blood Pressure 109/79 118/71 O2 Sat by Pulse Oximetry 93 L 94 L 12/11/19 13:49 12/11/19 13:50 12/11/19 14:00 Temperature Pulse Rate 87 73 84 Respiratory Rate 30 H 30 H Blood Pressure 115/80 O2 Sat by Pulse Oximetry 94 L 94 L 93 L 12/11/19 14:01 12/11/19 15:00 12/11/19 15:26 Temperature 98.3 F Pulse Rate 84 76 94 H Respiratory Rate 28 H 32 H Blood Pressure 120/72 O2 Sat by Pulse Oximetry 93 L 91 L 91 L 12/11/19 17:38 12/11/19 17:45 12/11/19 18:01 Temperature Pulse Rate 81 84 89 Respiratory Rate 17 Blood Pressure 138/91 O2 Sat by Pulse Oximetry 94 L 93 L 93 L 12/11/19 19:00 12/11/19 19:45 12/11/19 20:00 Temperature 98.8 F Pulse Rate 79 91 H 83 Respiratory Rate 29 H 32 H Blood Pressure 113/84 117/79 O2 Sat by Pulse Oximetry 92 L 92 L 92 L 12/11/19 21:00 12/11/19 22:00 12/11/19 23:00 Temperature Pulse Rate 83 80 74 Respiratory Rate 19 27 H 26 H Blood Pressure 128/81 129/85 131/81 O2 Sat by Pulse Oximetry 95 92 L 94 L 12/12/19 00:00 12/12/19 01:00 12/12/19 02:00 Temperature 98.9 F Pulse Rate 69 75 79 Respiratory Rate 27 H 30 H 23 Blood Pressure 128/74 127/81 115/71 O2 Sat by Pulse Oximetry 94 L 91 L 91 L 12/12/19 03:00 12/12/19 04:00 12/12/19 04:25 Temperature 98.0 F Pulse Rate 75 67 71 Respiratory Rate 23 22 Blood Pressure 114/77 124/85 O2 Sat by Pulse Oximetry 91 L 92 L 94 L 12/12/19 05:00 12/12/19 06:00 Temperature Pulse Rate 83 72 Respiratory Rate 23 26 H Blood Pressure 134/90 134/81 O2 Sat by Pulse Oximetry 93 L 92 L Labs: Laboratory Last Values WBC 5.2 X10^3/uL (3.6-10.0) 12/12/19 04:53 RBC 5.22 X10^6/uL (4.7-6.0) 12/12/19 04:53 Hgb 15.1 g/dL (13.5-18.0) 12/12/19 04:53 Hct 43.5 % (42.0-54.0) 12/12/19 04:53 MCV 83.3 fL (80.0-100.0) 12/12/19 04:53 MCH 28.8 pg (27.0-34.0) 12/12/19 04:53 MCHC 34.6 g/dL (33.0-35.0) 12/12/19 04:53 RDW 13.6 % (11.6-16.5) 12/12/19 04:53 Plt Count 283 X10^3/uL (150.0-450.0) 12/12/19 04:53 MPV 7.3 fL (7.4-11.0) L 12/12/19 04:53 Neut % (Auto) 60.6 % (42.0-75.0) 12/12/19 04:53 Lymph % (Auto) 28.2 % (21.0-51.0) 12/12/19 04:53 [place] % (Auto) 9.2 % (0.0-13.0) 12/12/19 04:53 Eos % (Auto) 1.6 % (0.9-2.9) 12/12/19 04:53 Baso % (Auto) 0.4 % (0.2-1.0) 12/12/19 04:53 Neut # (Auto) 3.1 x10^3/uL (2.2-4.8) 12/12/19 04:53 Lymph # (Auto) 1.5 X10^3/uL (1.3-2.9) 12/12/19 04:53 [place] # (Auto) 0.5 x10^3/uL (0.3-0.8) 12/12/19 04:53 Eos # (Auto) 0.1 x10^3/uL (0.0-0.2) 12/12/19 04:53 Baso # (Auto) 0.0 X10^3/uL (0.0-0.1) 12/12/19 04:53 Absolute Nucleated RBC 0.2 /100WBC 12/12/19 04:53 Sample Site Lr 12/08/19 04:20 ABG pH 7.410 (7.35-7.45) 12/08/19 04:20 ABG pCO2 41.0 mmHg (35.0-45.0) 12/08/19 04:20 ABG pO2 81.0 mmHg (80.0-100.0) 12/08/19 04:20 ABG HCO3 26.0 mmol/L (22-26) 12/08/19 04:20 ABG O2 Saturation 96.0 % (90-100) 12/08/19 04:20 ABG Base Excess 1.2 mmol/L (-2.0-2.0) 12/08/19 04:20 Ernesto Test Pos 12/08/19 04:20 A-a Gradient 438.0 mmHg 12/08/19 04:20 FiO2 80.0 12/08/19 04:20 Blood Gas Comments [place] well ae 12/08/19 04:20 Sodium 138 mmol/L (136-145) 12/12/19 04:53 Corrected Sodium 139 mmol/L (136-145) 12/12/19 04:53 Potassium 3.8 mmol/L (3.5-5.1) 12/12/19 04:53 Chloride 105 mmol/L (98-107) 12/12/19 04:53 Carbon Dioxide 26.7 mmol/L (21-32) 12/12/19 04:53 BUN 13 mg/dL (7-18) 12/12/19 04:53 Creatinine 0.92 mg/dL (0.70-1.30) 12/12/19 04:53 Est GFR (MDRD) Af Amer > 60 (>60) 12/12/19 04:53 Est GFR (MDRD) Non-Af > 60 (>60) 12/12/19 04:53 Glucose 129 mg/dL (65-99) H 12/12/19 04:53 POC Glucose (mg/dL) 140 mg/dL (65-99) H 12/12/19 05:01 Lactic Acid 1.3 mmol/L (0.4-2.0) 12/05/19 21:30 Calcium 7.9 mg/dL (8.5-10.1) L 12/12/19 04:53 Corrected Calcium 9.1 mg/dL (8.5-10.1) 12/11/19 05:00 Total Bilirubin 0.40 mg/dL (0.2-1.0) 12/11/19 05:00 AST 28 Units/L (15-37) 12/11/19 05:00 ALT 67 Units/L (12-78) 12/11/19 05:00 Alkaline Phosphatase 64 Units/L (46-116) 12/11/19 05:00 C-Reactive Protein 86.40 mg/L (0-3.0) H 12/06/19 05:02 Total Protein 6.2 g/dL (6.4-8.2) L 12/11/19 05:00 Albumin 2.5 g/dL (3.4-5.0) L 12/11/19 05:00 Globulin 3.7 g/dL (2.5-4.5) 12/11/19 05:00 Albumin/Globulin Ratio 0.7 Ratio (1.1-2.1) L 12/11/19 05:00 Specimen Type Clean catch urine 12/05/19 23:20 Urine Color Yellow (YELLOW) 12/05/19 23:20 Urine Appearance Clear (CLEAR) 12/05/19 23:20 Urine pH 6.5 (5.0 - 8.0) 12/05/19 23:20 Ur Specific [place] 1.010 (1.000-1.030) 12/05/19 23:20 Urine Protein 2+ (NEGATIVE) 12/05/19 23:20 Urine Glucose (UA) 2+ (NEGATIVE) 12/05/19 23:20 Urine Ketones Negative (NEGATIVE) 12/05/19 23:20 Urine Occult Blood 1+ (NEGATIVE) 12/05/19 23:20 Urine Nitrite Negative (NEGATIVE) 12/05/19 23:20 Urine Bilirubin Negative (NEGATIVE) 12/05/19 23:20 Urine Urobilinogen Normal (NORMAL) 12/05/19 23:20 Ur Leukocyte Esterase Negative (NEGATIVE) 12/05/19 23:20 Urine RBC 0-2 /HPF (0-3) 12/05/19 23:20 Urine WBC None seen /HPF (0-5) 12/05/19 23:20 Ur Squamous Epith Cells Negative /HPF (NEGATIVE) 12/05/19 23:20 Urine Bacteria Negative /HPF (NEGATIVE) 12/05/19 23:20 Urine Mucus Few /HPF (NEGATIVE) 12/05/19 23:20 Ur Culture Indicated? No/not indicated 12/05/19 23:20 Reason For Visit: PNEUMONIA,HYPOXIA,FEVER,GENERALIZED WEAKNESS Discharge Date Discharge Date: 12/12/19 Discharge Diagnosis All Active Problems (Updated 12/06/19 @ 11:27 by Feng Kaye) Acute respiratory failure (Acute) Hypoxia (Acute) Pneumonia due to COVID-19 virus (Acute) Fever (Acute) Pneumonia (Acute) Generalized weakness (Acute) Bronchopneumonia (Acute) Hypocalcemia (Acute) Thrombocytopenia (Acute) Plan of Treatment: Continue with present treatment and follow up plan. Pt is to keep follow up appointment as instructed and take medications as ordered. Discharge Medications Discharge Medications: No Known Drug Allergies Allergy (Verified 12/02/19 21:30) New Prescriptions levofloxacin 750 mg PO DAILY 4 Days #4 tab 12/12/19 [Rx] prednisone 40 mg PO DAILY 5 Days #10 tab 12/12/19 [Rx] Discharge Disposition Discharge Disposition: Home Discharge Condition: Stable
[2019-12-12 09:07] VITALS: BP 136/72
[2019-12-12] MEDS: LOVENOX INJ 40 MG SYR SC SCH (09:08)
[2019-12-12] MEDS: ROBITUSSIN DM PO SCH (09:08)
[2019-12-12] MEDS: VITAMIN C PO SCH (09:08)
[2019-12-12] MEDS: LEVAQUIN TAB 750 MG PO SCH (09:08)
== END 2019-12-12 10:00 | disposition home or self-care (01) | DRG 177 ==
LOC: ER 20:40 → ICU 22:59
PROVIDERS: ADMIT Family Medicine; ATTEND Family Medicine
DX: R53.1 Weakness; B96.89 Other specified bacterial agents as the cause of diseases classified elsewhere; U07.1 COVID-19; J12.89 Other viral pneumonia; R50.9 Fever, unspecified; J96.01 Acute respiratory failure with hypoxia
CPT/HCPCS: 36415; 36600; 71010; 71045; 80048; 80053; 81001; 82803; 83605; 85025; 86140; 87040; 87070; 87077; 87186; 87205; 94640; 96365; 96367; 96374; 99284; A4222; J0696; J1650; J1815; J2930; J3262; J3490; J7030; J7050